=== PATIENT | male | born 1940 | race Caucasian/White ===

== ENCOUNTER 2017-05-27 19:04 | Inpatient (IN) | payer MEDICARE, BC, OTHER ==
[2017-05-27] MEDS ORDERED: Labetalol HCl 100 MG/20 ML VIAL ONE (19:38)
[2017-05-27 20:48] LABS: Troponin I 1.055 ng/mL (< 0.028)
[2017-05-27] MEDS ORDERED: Ondansetron ODT 4 MG TAB SL PRN (21:22)
[2017-05-27] MEDS ORDERED: Acetaminophen 325 MG TAB PO PRN (21:22)
[2017-05-27] MEDS ORDERED: Ondansetron HCl/PF 4 MG/2 ML Vial IVP PRN (21:22)
[2017-05-27 21:30] VITALS: BMI 29.8
[2017-05-27] MEDS ORDERED: Loperamide HCl 2 MG CAP PO PRN (21:53)
[2017-05-27] MEDS ORDERED: Bisacodyl 5 MG TAB PO PRN (21:53)
[2017-05-27] MEDS: Azithromycin 500 MG in Sodium Chloride 0.9% 250 ML 250 ML IVPB SCH (23:10)
[2017-05-28 06:17] LABS: #Lymphocytes 0.7 thou/uL (1.20-3.40); #Monocytes 0.2 thou/uL (0.11-0.59); #Neutrophils 5.3 thou/uL (1.40-6.50); %Basophils 0.6 % (0.0-1.0); %Eosinophils 0.3 % (0.0-10.0); %Lymphocytes 11.7 % (21.0-51.0); %Monocytes 3.6 % (0.0-10.0); %Neutrophils 83.8 % (42.0-75.0); Anion Gap 12 mmol/L (10-20); BUN (Urea Nitrogen) 23 mg/dL (8.4-25.7); Calc. Creatinine Clearance 85 mL/min (70-130); Calcium 8.2 mg/dL (7.8-10.44); Carbon Dioxide 27 mmol/L (23-31); Chloride 104 mmol/L (98-107); Estimated GFR-MDRD 80; Glucose 184 mg/dL (83-110); Hemoglobin 15.5 g/dL (14.0-18.0); Mean Corpuscular HGB CONC 32.2 g/dL (32.0-36.0); Mean Corpuscular Hemoglobin 31.2 pg (27.0-31.0); Mean Corpuscular Volume 96.9 fl (80.0-94.0); Mean Platelet Volume 7.9 fL (7.4-10.4); PLT Morphology Comment Appears Decreased; Platelet Count 109 thou/uL (130-400); Potassium 4.2 mmol/L (3.5-5.1); RBC Distribution Width 13.5 % (11.5-14.5); Red Blood Cell (RBC) Count 4.97 mill/uL (4.70-6.10); Sodium 139 mmol/L (136-145); White Blood Cell (WBC) Count 6.3 thou/uL (4.8-10.8)
--- NOTE | 2017-05-28 08:09 | HP ---
CHIEF COMPLAINT: Shortness of breath. HISTORY OF PRESENT ILLNESS: The patient is a 76-year-old male who presents with an 8-day history of shortness of breath. The patient states that shortness of breath is accompanied by wheezing. He als o complains of some coughing as well and coughing is accompanied by lower abdominal/groin pain. The patient is supposed to be on home O2; however, he states that he only uses it intermittently and not the way he is supposed to. He does use albuterol nebulizers as well and has had to increase the freq uency of his use to 3-4 times a day in the last several days. He complained of some diarrhea about 4 days ago, but this has since resolved. He states that his COPD had only two exacerbations in the la st several years. He has never been intubated for this. PAST MEDICAL HISTORY: Significant for COPD, as well as hypertension and hyperlipidemia, which he blanco s not take any medication for. PAST SURGICAL HISTORY: The patient has had prostate surgery. SOCIAL HISTORY: The patient denied any alcohol use. He has quit smoking about 5 years ago and previ ously had smoked cigarettes. ALLERGIES: The patient has allergies to PENICILLIN. REVIEW OF SYSTEMS: Please see HPI. Rest of 14-point review of systems is negative. The patient als o denied any fevers, chills, any constipation, nausea, or vomiting. LABORATORY AND X-RAY DATA: Transferring labs were reviewed, as the patient did transfer from [place] . His repeat troponin is 1.055. HOME MEDICATIONS: The patient is on amlodipine 10 mg once a day, as well as his albuterol nebulizers . PHYSICAL EXAMINATION: VITAL SIGNS: Temperature 97.9, pulse 100, respirations 16. The patient's saturation is 94% on 3 lit ers, blood pressure is 160/77. GENERAL: The patient is awake, alert, oriented x3, in no acute distress. HEENT: Pupils are round and reactive to light and accommodation. Extraocular muscles intact. TMs a re clear. . NECK: No JVD. No lymphadenopathy. HEART: Regular rate and rhythm. LUNGS: With decreased breath sounds throughout. ABDOMEN: Positive bowel sounds. Soft, nontender, nondistended. EXTREMITIES: No clubbing, cyanosis, or edema. NEUROLOGIC: Cranial nerves II-XII are grossly intact. PSYCHOLOGIC: The patient is appropriate and cooperative. ASSESSMENT AND PLAN: 1. Chronic obstructive pulmonary disease exacerbation. Continue with nebulizer treatments. Continu e with steroids, O2 via nasal cannula to keep O2 saturations greater than 88%. 2. Hypertension. Restart patient's amlodipine and p.r.n. medications as needed. 3. Elevated troponin. The patient has related this has happened in the past with his chronic obstru ctive pulmonary disease exacerbation. He did have a workup; however, it has been several years since his last stress test. We will go ahead and trend troponins and as needed consult Cardiology with fu rther workup if warranted.
[2017-05-28] MEDS: Albuterol Sulfate 2.5 mg/3 ml Neb NEB SCH ×4 (08:44→18:36)
[2017-05-28] MEDS: Mometasone/Formoterol 120 PUFF INHALER INH SCH ×2 (08:54→18:51)
[2017-05-28] MEDS: Lisinopril 10 MG TAB PO SCH (10:28)
[2017-05-28] MEDS: predniSONE 20 MG TAB PO SCH (10:28)
[2017-05-28] MEDS: Brimonidine Tartrate 0.2% Ophth Soln 5 ml Bottle EA EYE SCH ×2 (10:29→20:53)
[2017-05-28] MEDS ORDERED: Simvastatin 40 MG TAB PO SCH (11:15)
[2017-05-28] MEDS ORDERED: Aspirin 325 mg Enteric Coated Tablet PO SCH (11:15)
[2017-05-28 11:35] LABS: Critical Call Chem Troponin I RESULT DECREASING; Troponin I 1.111 ng/mL (< 0.028)
--- NOTE | 2017-05-28 15:19 | PDOC.PN ---
- Subjective Encounter Start Date: 05/28/17 Encounter Start Time: 15:15 CC: Dyspnea sub: Pt says he feels better, denies dyspnea. - Objective Resuscitation Status: Resuscitation Status DNR:Do Not Resuscitate Vital Signs & Weight: Vital Signs (12 hours) Temp Pulse Resp BP Pulse Ox 05/28/17 12:00 97.8 F 98 20 169/89 H 95 05/28/17 11:40 89 16 05/28/17 08:39 99 16 05/28/17 08:00 97.5 F L 81 20 163/80 H 93 L 05/28/17 04:45 97.7 F 87 18 169/79 H 95 Weight Weight 196 lb 1.6 oz Result Diagrams: 05/28/17 05:30 05/28/17 05:30 Phys Exam - Physical Examination Constitutional: NAD HEENT: moist MMs Neck: no JVD Respiratory: no wheezing diminished at bases, no rhonchi Cardiovascular: RRR, no significant murmur, no rub Gastrointestinal: soft, non-tender distended Musculoskeletal: no edema Neurological: non-focal Psychiatric: normal affect, A&O x 3 Skin: no rash Dx/Plan - Plan Pt is 76 yrs old male now admitted to hospital due to dyspnea 1. ACute COPD exacerbation: Breathing improved currently Will continue prednisone 40mg po daily Continue breathing treatments. 2. Abnormal cardiac enzymes: Repeat troponin stable Will start aspirin 81mg po daily and zocor 40mg daily will consult cardio to evalaute patient. 3. H/O HTN: monitor bp Continue home meds. 4. DVT & GI prophylaxis: Lovenox 40mg subq daily and PPI Case d/w pt & RN
--- NOTE | 2017-05-28 15:38 | CON ---
DATE OF CONSULTATION: 05/28/2017 REASON FOR CONSULTATION: Elevated troponin. HISTORY OF PRESENT ILLNESS: Mr. Camp is a very pleasant 76-year-old gentleman. He has a previous hi story of COPD, recently presented with abdominal pain in an outlying emergency room. He was told he had hernia. Enzymes were drawn and were elevated. He was subsequently transferred to [place]. Amarjit bojorquez has chronic shortness of breath. No episodes of chest pain or pressure noted. He does have advanc ed COPD. He states he last saw a entertainment agent in [place], [place] 7 years ago. PAST MEDICAL HISTORY: As above including hypertension, hyperlipidemia. PAST SURGICAL HISTORY: Prostate cancer. SOCIAL HISTORY: Quit all tobacco products 5 years ago. ALLERGIES: PENICILLIN. HOME MEDICATIONS: Include pantoprazole, Zestril, Symbicort, and albuterol. REVIEW OF SYSTEMS: Ten-point review of systems is reviewed and is as above, otherwise negative. PHYSICAL EXAMINATION: GENERAL: Patient is a pleasant male who is in no acute distress. He does appear older than his stat ed age. VITAL SIGNS: Blood pressure 169/89, pulse 98, temperature 97.8. NEUROLOGIC: The patient is alert and oriented times 3 with no focal neurologic deficits. HEENT: Sclerae without icterus. Mouth has moist mucous membranes with normal pallor. NECK: No JVD. Carotid upstroke brisk. No bruits bilaterally. LUNGS: Clear to auscultation with unlabored respirations. BACK: No scoliosis or kyphosis. CARDIAC: Regular rate and rhythm with normal S1 and S2. No S3 or S4 noted. No significant rubs, mu rmurs, thrills, or gallops noted throughout the precordium. PMI is not displaced. There is no milagros ternal heave. ABDOMEN: Soft, nontender, nondistended. No peritoneal signs present. No hepatosplenomegaly. No ab normal striae. EXTREMITIES: 2+ femoral and 2+ dorsalis pedis pulses. No cyanosis, clubbing, or edema. SKIN: No gross abnormalities. LABORATORY DATA: Peak troponin 1.111, potassium 4.2, creatinine 0.92, hemoglobin 15.5. EKG: Normal sinus rhythm, nonspecific ST-T wave changes. IMPRESSION: 1. Elevated troponin. 2. Unstable angina. 3. Chronic obstructive pulmonary disease. RECOMMENDATIONS: I am unsure whether Mr. Camp's symptoms of abdominal pain were anginal equivalent. He does have chronic shortness of breath. He has had mildly elevated troponins in the past in the 0 .1-0.2 range, but not 1.7. At this point, I discussed coronary angiography, possible PCI with Mr. Jenaro green. I discussed the procedure in full detail with the patient. The risks of the procedure were also discussed. The risks of the procedure include but are not limited to the following: , stroke, IA, need for emergency surgery, loss of limb, bleeding, and infection, as well as a reaction to the dye causing kidney failure and needing long-term dialysis. I also discussed the risks of PCI to incl ude all of the above including coronary dissection and perforation in addition to acute stent thrombo sis and restenosis. All questions about the procedure were answered. Given the above, the patient a greed to proceed with coronary angiography and possible PCI. All questions about the procedure were answered. I also discussed drug-coated versus nondrug coated stent placement. There are no contraindications to proceed if needed. Further recommendations were pending the above. We would continue aspirin. We will add Lovenox 1 mg per kilo subcutaneously q.12 h. We will hold Plavix and give if needed during the procedure. There is some concern for severe 3- vessel disease given his previous history.
[2017-05-28] MEDS: Latanoprost 0.005% Ophth Soln 2.5 ml Bottle EA EYE SCH (20:53)
[2017-05-28] MEDS: Enoxaparin Sodium 100 MG/ML SYRINGE SC SCH (20:53)
[2017-05-28] MEDS: Azithromycin 500 MG in Sodium Chloride 0.9% 250 ML 250 ML IVPB SCH (20:53)
[2017-05-29] MEDS: Albuterol Sulfate 2.5 mg/3 ml Neb NEB SCH ×4 (07:05→19:23)
[2017-05-29] MEDS: Lisinopril 10 MG TAB PO SCH ×2 (08:38→17:47)
[2017-05-29] MEDS: predniSONE 20 MG TAB PO SCH (08:43)
[2017-05-29] MEDS: Aspirin 325 mg Enteric Coated Tablet PO SCH (08:43)
[2017-05-29] MEDS: Enoxaparin Sodium 100 MG/ML SYRINGE SC SCH ×2 (08:44→21:19)
[2017-05-29] MEDS: Mometasone/Formoterol 120 PUFF INHALER INH SCH ×2 (08:47→19:16)
[2017-05-29] MEDS: Brimonidine Tartrate 0.2% Ophth Soln 5 ml Bottle EA EYE SCH ×2 (08:49→21:21)
[2017-05-29] MEDS ORDERED: Communication Order-Pharmacy FS SCH (09:30)
[2017-05-29] MEDS ORDERED: Nitroglycerin 0.4 MG TAB (25 Tab Bottle) SL PRN (11:36)
[2017-05-29] MEDS ORDERED: Sodium Chloride 0.9% 10 ML ONE (13:18)
--- NOTE | 2017-05-29 14:21 | PDOC.PN ---
- Subjective Encounter Start Date: 05/29/17 Encounter Start Time: 14:19 CC: Dyspnea sub: Pt denies chest pain, but still c/o dyspnea - Objective Resuscitation Status: Resuscitation Status DNR:Do Not Resuscitate Vital Signs & Weight: Vital Signs (12 hours) Temp Pulse Resp BP Pulse Ox 05/29/17 11:18 98.0 F 91 22 H 131/57 L 95 05/29/17 11:15 96 05/29/17 11:14 88 20 05/29/17 07:05 97.9 F 94 22 H 162/86 H 97 05/29/17 04:00 96.1 F L 80 19 146/86 H 93 L Weight Weight 198 lb 8 oz I&O: 05/28/17 05/29/17 05/30/17 06:59 06:59 06:59 Intake Total 2049 Balance 2049 Result Diagrams: 05/28/17 05:30 05/28/17 05:30 Dx/Plan - Plan Physical Examination Constitutional: NAD HEENT: moist MMs Neck: no JVD Respiratory: positive wheezing, diminished at bases, occasional rhonchi, no accessory muscle usage seen Cardiovascular: RRR, no significant murmur, no rub Gastrointestinal: soft, non-tender distended Musculoskeletal: no edema Neurological: non-focal Psychiatric: normal affect, A&O x 3 Skin: no rash Dx/Plan - Plan Pt is 76 yrs old male now admitted to hospital due to dyspnea 1. ACute COPD exacerbation: Breathing no change since yesterday will dc po prednisone and will start iv solumedrol 40mg q8hrs Continue breathing treatments. 2. Abnormal cardiac enzymes: Repeat troponin stable continue aspirin 81mg po daily and zocor 40mg daily Cardio on board. Cath on tuesday. 3. H/O HTN: monitor bp Continue home meds. 4. DVT & GI prophylaxis: Lovenox 40mg subq daily and PPI Case d/w pt & RN & pt family at bedside.
[2017-05-29] MEDS: Simvastatin 40 MG TAB PO SCH (21:20)
[2017-05-29] MEDS: Latanoprost 0.005% Ophth Soln 2.5 ml Bottle EA EYE SCH (21:20)
[2017-05-29] MEDS: Azithromycin 500 MG in Sodium Chloride 0.9% 250 ML 250 ML IVPB SCH (21:21)
[2017-05-29] MEDS ORDERED: Sodium Chloride 0.9% 1,000 ML IV SCH (22:00)
[2017-05-30] MEDS ORDERED: Sodium Chloride 0.9% 1,000 ML IV SCH ×2 (06:00→11:45)
[2017-05-30] MEDS: Mometasone/Formoterol 120 PUFF INHALER INH SCH ×2 (08:00→20:47)
[2017-05-30] MEDS: Albuterol Sulfate 2.5 mg/3 ml Neb NEB SCH ×4 (08:01→20:44)
[2017-05-30] MEDS: Brimonidine Tartrate 0.2% Ophth Soln 5 ml Bottle EA EYE SCH ×2 (08:27→21:19)
[2017-05-30] MEDS ORDERED: Lisinopril 10 MG TAB PO SCH (09:00)
[2017-05-30] MEDS ORDERED: Fentanyl 100 MCG/2 ML VIAL ONE (10:54)
[2017-05-30] MEDS ORDERED: Midazolam HCl 2 mg/2 ml Vial ONE (10:54)
[2017-05-30] MEDS ORDERED: Heparin 10,000 UNITS/1 ML VIAL ONE (11:10)
[2017-05-30] MEDS ORDERED: Clopidogrel Bisulfate 300 MG TAB ONE (11:10)
--- NOTE | 2017-05-30 11:32 | PDOC.PN ---
- Subjective Encounter Start Date: 05/30/17 Encounter Start Time: 11:37 Subjective: No complaints today. -: No acute events overnight. -: Scheduled for CATH today. - Objective Resuscitation Status: Resuscitation Status FULL:Full Resuscitation MAR Reviewed: Yes Vital Signs & Weight: Vital Signs (12 hours) Temp Pulse Resp BP Pulse Ox 05/30/17 08:01 97.6 F 105 H 18 97 05/30/17 04:00 97.4 F L 94 18 134/86 96 Weight Weight 197 lb 6 oz I&O: 05/29/17 05/30/17 05/31/17 06:59 06:59 06:59 Intake Total 2049 1680 Output Total 550 Balance 2049 1130 Result Diagrams: 05/28/17 05:30 05/28/17 05:30 Phys Exam - Physical Examination Constitutional: NAD HEENT: PERRLA, moist MMs, sclera anicteric Neck: supple, full ROM Respiratory: no rales, no rhonchi, wheezing present (minimal, with decreased air entry lung bases) Cardiovascular: RRR, no significant murmur, no rub Gastrointestinal: soft, non-tender, no distention, positive bowel sounds Musculoskeletal: no edema, pulses present Neurological: non-focal, moves all 4 limbs Psychiatric: normal affect, A&O x 3 Skin: no rash, normal turgor Dx/Plan (1) Acute and chronic respiratory failure Code(s): J96.20 - ACUTE AND CHR RESP FAILURE, UNSP W HYPOXIA OR HYPERCAPNIA Status: Acute Qualifiers: Respiratory failure complication: hypoxia Qualified Code(s): J96.21 - Acute and chronic respiratory failure with hypoxia Comment: Improving. Uses 2-3L O2 at home. Almost back to baseline requirements. Continue O2, steroids, abx (2) Elevated troponin Code(s): R79.89 - OTHER SPECIFIED ABNORMAL FINDINGS OF BLOOD CHEMISTRY Status : Acute Comment: Chest pain free. CATH today. f/u cards recs. (3) COPD exacerbation Code(s): J44.1 - CHRONIC OBSTRUCTIVE PULMONARY DISEASE W (ACUTE) EXACERBATION Status: Acute Comment: Improving. Continue mx per problem #1 (4) GERD (gastroesophageal reflux disease) Code(s): K21.9 - GASTRO-ESOPHAGEAL REFLUX DISEASE WITHOUT ESOPHAGITIS Status: Acute Qualifiers: Esophagitis presence: esophagitis presence not specified Qualified Code(s) : K21.9 - Gastro-esophageal reflux disease without esophagitis Comment: On Pantoprazole. Asymptomatic. Will continue. (5) History of prostate cancer Code(s): Z85.46 - PERSONAL HISTORY OF MALIGNANT NEOPLASM OF PROSTATE Status: Chronic Comment: Unchanged. (6) HTN (hypertension) Code(s): I10 - ESSENTIAL (PRIMARY) HYPERTENSION Status: Acute Qualifiers: Hypertension type: essential hypertension Qualified Code(s): I10 - Essential (primary) hypertension Comment: Controlled and at goal. Continue home medications. - Plan cont current plan of care, plan discussed w/ family, DVT proph w/lovenox * .
[2017-05-30] MEDS ORDERED: Iopamidol 370 76% 50 ML VIAL FS ONE (11:35)
[2017-05-30] MEDS ORDERED: Iopamidol 370 76% 100 ML VIAL ONE (11:36)
[2017-05-30] MEDS ORDERED: cloNIDine 0.1 MG TAB ONE (12:38)
--- NOTE | 2017-05-30 13:26 | PQF ---
CLINICAL DOCUMENTATION IMPROVEMENT CLARIFICATION FORM: ICD-10 Updated PLEASE DO AN ADDENDUM TO THE PROGRESS NOTE WITH ANY DOCUMENTATION UPDATES OR ADDITIONS AND CARRY THROUGH TO DC SUMMARY. THANK YOU. DATE: 05/30 ATTN: DR. Ruiz BURKETT Please exercise your independent, professional judgment in responding to the clarification form. Clinical indicators are provided on the bottom of this form for your review. Please check appropriate box(s): [ x ] NSTEMI TYPE 1 [ ] NSTEMI TYPE 2 [ ] Demand Ischemia [ ] Unstable Angina [ ] Other diagnosis [ ] Unable to determine For continuity of documentation, please document condition throughout progress notes and discharge summary. Thank You. CLINICAL INDICATORS - SIGNS / SYMPTOMS/ LABS are present in the medical record: TROPONIN: 1.055 (2010); 1.260 (05/27, 2310); 1.111 (05/28, 1052) ER PHYSICIAN DOCUMENTATION 05/27: TRANSFER FROM [facility] FOR ELEVATED TROPONINS PHYSICIAN H&P DOCUMENTATION 05/27: ASSESSMENT & PLAN: 3. ELEVATED TROPONIN CARDIOLOGY CONSULT DOCUMENTATION 05/28: IMPRESSION: 1. ELEVATED TROPONIN; 2. UNSTABLE ANGINA. RECOMMENDATIONS: I'M UNSURE WHETHER MR. KLINE'S SYMPTOMS OF ABDOMINAL PAIN WERE ANGINAL EQUIVALENT. HE HAS HAD MILDLY ELEVATED TROPONINS IN THE PAST IN THE 0.1 - 0.2 RANGE, BUT NOT 1.7 ATTENDING PHYSICIAN PN / &4: DX/PLAN: 2. ABNORMAL CARDIAC ENZYMES ATTENDING PHYSICIAN PN 05/30: DX/PLAN: 2. ELEVATED TROPONIN CARDIOLOGY CONSULT ORDER 05/28: REASON FOR EXAM: NSTEMI RISK FACTORS: ELEVATED TROPONINS HTN COPD EXACERBATION TREATMENT: CARDIOLOGY CONSULT L HEART CATH W/ROSEANN W/PTCA SERIAL CARDIAC ENZYMES THANK YOU! Lola (This form is maintained as a part of the permanent medical record) 2014 [employer]. All Rights Reserved Lola Mueller RN, BSN [email or web address] Office: [phone] [facility] HOSPITALEusebio
[2017-05-30] MEDS ORDERED: hydrALAZINE 20 MG/ML VIAL ONE (14:53)
[2017-05-30] MEDS ORDERED: hydrALAZINE 20 MG/ML VIAL SLOW IVP SCH (16:30)
[2017-05-30] MEDS: Aspirin 325 mg Enteric Coated Tablet PO SCH (17:01)
[2017-05-30] MEDS ORDERED: Sodium Chloride 0.65% Nasal 44 ML BOT EA NARE PRN (17:45)
[2017-05-30] MEDS ORDERED: Lisinopril 5 MG TAB PO SCH (18:00)
[2017-05-30] MEDS: Azithromycin 500 MG in Sodium Chloride 0.9% 250 ML 250 ML IVPB SCH (21:18)
[2017-05-30] MEDS: Simvastatin 40 MG TAB PO SCH (21:18)
[2017-05-30] MEDS: Lisinopril 10 MG TAB PO SCH (21:19)
[2017-05-30] MEDS: Latanoprost 0.005% Ophth Soln 2.5 ml Bottle EA EYE SCH (21:19)
[2017-05-31 05:55] LABS: #Lymphocytes 0.7 thou/uL (1.20-3.40); #Monocytes 0.5 thou/uL (0.11-0.59); %Basophils 0.2 % (0.0-1.0); %Eosinophils 0.2 % (0.0-10.0); %Lymphocytes 5.3 % (21.0-51.0); %Monocytes 3.9 % (0.0-10.0); %Neutrophils 90.5 % (42.0-75.0); Hemoglobin 14.4 g/dL (14.0-18.0); Mean Corpuscular HGB CONC 31.4 g/dL (32.0-36.0); Mean Corpuscular Hemoglobin 30.7 pg (27.0-31.0); Mean Platelet Volume 8.4 fL (7.4-10.4); Platelet Count 129 thou/uL (130-400); RBC Distribution Width 13.5 % (11.5-14.5); Red Blood Cell (RBC) Count 4.68 mill/uL (4.70-6.10); White Blood Cell (WBC) Count 13.3 thou/uL (4.8-10.8)
[2017-05-31 06:18] LABS: ALT (SGPT) 43 U/L (8-55); AST (SGOT) 33 U/L (5-34); Albumin 3.3 g/dL (3.4-4.8); Alkaline Phosphatase 75 U/L (40-150); Anion Gap 10 mmol/L (10-20); BUN (Urea Nitrogen) 20 mg/dL (8.4-25.7); Bilirubin, Total 0.6 mg/dL (0.2-1.2); Calc. Creatinine Clearance 102 mL/min (70-130); Calcium 8.1 mg/dL (7.8-10.44); Carbon Dioxide 28 mmol/L (23-31); Chloride 106 mmol/L (98-107); Estimated GFR-MDRD Greater than 90; Globulin 2.7 g/dL (2.4-3.5); Glucose 181 mg/dL (83-110); Potassium 4.2 mmol/L (3.5-5.1); Sodium 140 mmol/L (136-145)
--- NOTE | 2017-05-31 06:25 | EKG ---
Test Reason : POST CATH STENT-RCA Blood Pressure : / mmHG Vent. Rate : 106 BPM Atrial Rate : 106 BPM P-R Int : 164 ms QRS Dur : 106 ms QT Int : 364 ms P-R-T Axes : 074 083 061 degrees QTc Int : 483 ms Sinus tachycardia Otherwise normal ECG Artifact in baseline of V6 lead. Compared to ekg of 13-May-2017 T wave inversion no longer evident in V5 and V6 leads. Confirmed by VINCENZO MCCALL ([id number]) on 05/31/2017 6:24:51 AM Referred By: CECELIA Confirmed By:VINCENZO MCCALL
[2017-05-31] MEDS: Mometasone/Formoterol 120 PUFF INHALER INH SCH (08:16)
[2017-05-31] MEDS: Albuterol Sulfate 2.5 mg/3 ml Neb NEB SCH ×3 (08:17→13:10)
[2017-05-31] MEDS ORDERED: Clopidogrel Bisulfate 75 MG TAB PO SCH (09:00)
[2017-05-31] MEDS: Brimonidine Tartrate 0.2% Ophth Soln 5 ml Bottle EA EYE SCH (09:36)
--- NOTE | 2017-05-31 11:23 | PRG ---
DATE OF SERVICE: 05/31/2017 SUBJECTIVE: No chest pain or pressure noted. No dizziness, lightheadedness, syncope, or presyncope present. OBJECTIVE: VITAL SIGNS: Blood pressure 136/86, pulse 100, temperature 98.2. LUNGS: Rhonchi and rales bilaterally. HEART: Regular rate and rhythm. ABDOMEN: Soft, nontender, nondistended. EXTREMITIES: No edema. Telemetry monitoring show 9 beats of nonsustained VT. IMPRESSION: 1. Non-Q wave myocardial infarction. 2. Coronary artery disease. 3. Status post stent placement. 4. Chronic obstructive pulmonary disease with asthma. RECOMMENDATIONS: The patient does have 9 beats of nonsustained VT. This may have been during the Ve ntolin treatments. We would recommend Echo Doppler. If his LVEF is normal, we will continue current treatment. May consider an EP consult if there is any compromise of his LVEF. I may consider event recorder to assess for any further dysrrhythmias.
[2017-05-31 16:17] VITALS: BP 163/92; TEMP 97.9
[2017-05-31] MEDS ORDERED: Lisinopril 10 MG TAB PO SCH (18:00)
--- NOTE | 2017-05-31 19:12 | DIS ---
DATE OF ADMISSION: 05/27/2017 DATE OF DISCHARGE: 05/31/2017 PRIMARY DISCHARGE DIAGNOSES: Coronary artery disease. SECONDARY DIAGNOSES: Acute on chronic respiratory failure, elevated non-ST elevated myocardial infar ction, chronic obstructive pulmonary disease exacerbation, gastroesophageal reflux disease, history o f prostate cancer, hypertension. CONSULTATION: Cardiology. CONDITION AT DISCHARGE: Stable and improved. PROCEDURE: Cardiac catheterization. DIET: Heart healthy. CARE GOALS: To follow up with his primary care physician within 1 week of discharge. Also to take h is medications as prescribed and told to return to the emergency room if he develops chest pain, shor tness of breath, loss of consciousness, or dizziness. ACTIVITY: As tolerated. HISTORY OF PRESENT ILLNESS: Mr. Adi Camp is a 76-year-old male who [facility] an 8-day history of shortness of breath which was accompanied by wheezing. He also had some c ough with some associated lower abdominal/groin pain. The patient is supposed to be on home oxygen, but however, he only uses it intermittently and states not in the way he is supposed to. He does use albuterol nebulizer as well and had to increase the frequency of his use to 3-4 times a day in the ast several days before presentation. He reports he has only had two exacerbations or COPD in the [place] [facility] several years and had never been intubated. HOSPITAL COURSE: He was admitted for acute on chronic respiratory failure, started on parenteral adriel roids, nebulizers and continued on oxygen supplementation. He also received azithromycin for possibl e associated pneumonia. He responded to therapy. They were reviewed by Cardiology due to NSTEMI as he had increase in troponin levels. He had a cardiac catheterization and had successful PCI with a d rug-eluting stent. He was started on aspirin and Plavix and he is to follow up with Cardiology disch talia. DISCHARGE MEDICATIONS: Aspirin 81 mg daily, Clopidogrel 75 mg daily, ipratropium/albuterol sulfate 3 mL nebulizers every 6 hours as needed for shortness of breath/wheezing, nitroglycerin 0.4 mg subling ually every 5 minutes as needed for chest pain, simvastatin 40 mg at bedtime, prednisone 40 mg every morning with breakfast, budesonide formoterol 2 puffs inhaled daily, pantoprazole 40 mg orally daily. PHYSICAL EXAMINATION: VITAL SIGNS: Stable on day of discharge. CONSTITUTIONAL: Not in acute distress, lying comfortably in bed. HEENT: PERRLA. Moist mucous membranes. Sclerae are anicteric. NECK: Supple, full range of movement. RESPIRATORY: No rales, rhonchi, or wheezing. CARDIOVASCULAR: Regular rate and rhythm. No significant murmurs or rubs. GASTROINTESTINAL: Soft, nontender, nondistended, positive bowel sound. MUSCULOSKELETAL: No edema. Pulses present. NEUROLOGICAL: Nonfocal. Moves all limbs spontaneously. PSYCHIATRIC: Normal affect. Alert and oriented to time, place, and person. SKIN: No rash, normal turgor. LABORATORY DATA: Sodium 140, potassium 4.2, chloride 106, carbon dioxide 28, anion gap 10, BUN 20, c reatinine 0.77, glucose 181. WBC 13.3, hemoglobin 14.4, platelet count 129. IMAGING: None. Time of discharge: 65 minutes including chart review and documentation.
--- NOTE | 2017-05-31 21:15 | EKG ---
Test Reason : Blood Pressure : / mmHG Vent. Rate : 085 BPM Atrial Rate : 085 BPM P-R Int : 160 ms QRS Dur : 100 ms QT Int : 380 ms P-R-T Axes : 065 077 075 degrees QTc Int : 452 ms Sinus rhythm with marked sinus arrhythmia Premature atrial complexes Septal infarct , age undetermined /Poor R wave progression. Abnormal ECG When compared with ECG of 30-MAY-2017 12:21, No significant change was found Confirmed by VINCENZO MCCALL ([id number]) on 05/31/2017 9:15:23 PM Referred By: CECELIA Confirmed By:VINCENZO MCCALL
== END 2017-05-31 17:15 | disposition home or self-care (01) | DRG 246 ==
LOC: ERS 19:04 → 2NO 19:55
PROVIDERS: ADMIT Hospitalist; ATTEND Hospitalist
PROC: 4A023N7 Measurement of Cardiac Sampling and Pressure, Left Heart, Percutaneous Approach (ICD-10-PCS; principal; 2017-05-30)
PROC: 027034Z Dilation of Coronary Artery, One Artery with Drug-eluting Intraluminal Device, Percutaneous Approach (ICD-10-PCS; 2017-05-30)
PROC: B2111ZZ Fluoroscopy of Multiple Coronary Arteries using Low Osmolar Contrast (ICD-10-PCS; 2017-05-30)
PROC: B2151ZZ Fluoroscopy of Left Heart using Low Osmolar Contrast (ICD-10-PCS; 2017-05-30)
DX: I25.110 Atherosclerotic heart disease of native coronary artery with unstable angina pectoris (principal); I21.4 Non-ST elevation (NSTEMI) myocardial infarction; J96.21 Acute and chronic respiratory failure with hypoxia; J44.1 Chronic obstructive pulmonary disease with (acute) exacerbation; Z99.81 Dependence on supplemental oxygen; K21.9 Gastro-esophageal reflux disease without esophagitis; Z85.46 Personal history of malignant neoplasm of prostate; I10 Essential (primary) hypertension; Z66 Do not resuscitate; Z87.891 Personal history of nicotine dependence
CPT/HCPCS: 36415; 76942; 80048; 80053; 84484; 85025; 85347; 92928; 93005; 93010; 93306; 93458; 93798; 94640; 96374; 99152; 99153; A4216; C1725; C1769; C1874; C1887; C9600; J0360; J0456; J1644; J1650; J2250; J2920; J3010; J7050; J7506; J7611; J7620

== ENCOUNTER 2020-01-30 16:24 | Inpatient (IN) | payer MEDICARE, BC, OTHER ==
[2020-01-30] MEDS ORDERED: Acetaminophen 325 MG TAB PO PRN (17:17)
[2020-01-30] MEDS ORDERED: Dextrose 5% in Water 1,000 ML IV PRN (17:26)
[2020-01-30] MEDS ORDERED: Dextrose 50% Abboject 50 ML SYRINGE SLOW IVP PRN (17:26)
[2020-01-30] MEDS ORDERED: Insulin Regular 300 UNITS/3 ML VIAL SC PRN (17:26)
[2020-01-30 17:30] LABS: Bilirubin Negative (Negative); Blood, Urine Negative (Negative); Clarity Clear (Clear); Glucose, Urine (Dipstick) Normal (Negative); Ketone, Urine Negative (Negative); Leukocyte Negative Leu/uL (Negative); Nitrite Negative (Negative); Protein, Urine (Dipstick) Negative (Neg-Trace); Specific Gravity, Urine 1.027 (1.002-1.036); Urobilinogen Normal mg/dL (Less than 2); pH, Urine 6.5 (5.0-9.0)
[2020-01-30] MEDS ORDERED: Potassium Chloride 20 MEQ TAB PO SCH (17:30)
[2020-01-30] MEDS ORDERED: Sodium Chloride 0.9% 1,000 ML IV SCH (17:45)
[2020-01-30] MEDS ORDERED: cefTRIAXone\\ROCEPHIN 1 GM in Sodium Chloride 0.9% 100 ML IVPB SCH (18:00)
[2020-01-30] MEDS ORDERED: Vancomycin 1 GM/200 ML BAG ONE (18:18)
[2020-01-30] MEDS ORDERED: Morphine 4 MG/ML VIAL ONE (20:15)
[2020-01-30] MEDS: Atorvastatin Calcium 20 MG TAB PO SCH (22:44)
[2020-01-30] MEDS: metroNIDAZOLE 500 MG in Premix Bag 1 BAG IVPB SCH (22:46)
--- NOTE | 2020-01-30 23:50 | HP ---
CHIEF COMPLAINT: Abdominal pain and diarrhea. HISTORY OF PRESENT ILLNESS: The patient is an 79-year-old male with past medical history of prostate cancer, COPD, diabetes, hyperlipidemia, and CHF who presented to the ER with complaints of abdominal pain and diarrhea. The patient's symptoms started 3 weeks ago where he was diagnosed with sigmoid diverticulitis at an outside facility and was given ciprofloxacin and Flagyl. The patient took the antibiotic as prescribed and he reported improvement in his symptoms. However, last week, his symptoms returned and progressed over the last few days. The patient presented to the outside ER again where another CT scan of the abdomen revealed pancolitis with ascending and descending diverticulitis. His laboratory studies revealed significant leukocytosis and his presentation qualified for sepsis. The patient was transferred to our hospital for further management. At this time, the patient is complaining of lower abdominal pain and diarrhea. He stated that he was not able to urinate since this morning. He was given fluids earlier today. A Steele catheter was placed by ER staff. The patient denies fever or chills. REVIEW OF SYSTEMS: Negative except as noted above. PAST MEDICAL HISTORY: As noted in HPI. SURGICAL HISTORY: This includes prostate surgery and cataract surgery. SOCIAL HISTORY: The patient is a former smoker. Denies alcohol use or illicit drug use. ALLERGIES: THE PATIENT IS ALLERGIC TO PENICILLINS. FAMILY HISTORY: Noncontributory to this case. PHYSICAL EXAMINATION: GENERAL: The patient is alert and oriented. HEENT: Head, normocephalic, atraumatic. Extraocular muscles intact. NECK: Supple. CHEST: Auscultation reveals mild wheezes bilaterally. CARDIOVASCULAR: Reveals normal S1 and S2 with regular rate and rhythm. ABDOMEN: Soft and tender in the lower quadrants. NEUROLOGIC: Showed normal cranial nerves 2 through 12 and no focal motor deficits. PERTINENT DATA: CT scan of the abdomen and pelvis with contrast showed diffuse colitis with segmental diverticulitis in the ascending and descending colon. LABORATORY STUDIES: Revealed WBC count of 22. Chemistry showed a potassium level of 3, total bilirubin of 1.5, and BNP of 156. ASSESSMENT: 1. Sepsis. 2. Pancolitis. 3. Diverticulitis. 4. Chronic obstructive pulmonary disease. 5. Diabetes mellitus. 6. Hyperlipidemia. 7. Congestive heart failure. 8. History of prostate cancer. 9. Urine retention. PLAN: The patient will be admitted to the hospital. We will start IV ceftriaxone and IV Flagyl for sepsis due to diverticulitis. Due to the patient's CHF, we will not administer fluid boluses. I will gently hydrate the patient overnight with 1 L of normal saline at a low rate. Hold diuretics at this time. Follow the results of the blood culture. Replace potassium and check BMP in the morning. We will keep the Steele catheter at this time and attempt a voiding trial later into hospitalization. Lovenox for DVT prophylaxis. PT and OT evaluation. Job ID: [id number]
[2020-01-31] MEDS: metroNIDAZOLE 500 MG in Premix Bag 1 BAG IVPB SCH ×3 (06:17→20:54)
[2020-01-31 06:31] LABS: Anion Gap 16 mmol/L (10-20); BUN (Urea Nitrogen) 15 mg/dL (8.4-25.7); Calc. Creatinine Clearance 86 mL/min (70-130); Calcium 7.6 mg/dL (7.8-10.44); Carbon Dioxide 20 mmol/L (23-31); Chloride 108 mmol/L (98-107); Estimated GFR-MDRD 88; Glucose 86 mg/dL (83-110); Potassium 3.6 mmol/L (3.5-5.1); Sodium 140 mmol/L (136-145)
[2020-01-31 06:31] LABS: Band 27 % (5-11); Hemoglobin 13.3 g/dL (14.0-18.0); Hypochromia SLIGHT = 6-15 cells (100X) (0-5/hpf); Lymphocytes 8 % (21-51); MDiff Complete? YES; Mean Corpuscular HGB CONC 32.4 g/dL (32.0-36.0); Mean Corpuscular Hemoglobin 32.5 pg (27.0-31.0); Mean Platelet Volume 8.1 fL (7.4-10.4); Monocytes 1 % (0-10); Neutrophil 64 % (42-75); Platelet Count 231 thou/uL (130-400); Platelet Morphology Comment Appears Adequate; RBC Distribution Width 13.3 % (11.5-14.5); Red Blood Cell (RBC) Count 4.09 mill/uL (4.70-6.10); White Blood Cell (WBC) Count 19.1 thou/uL (4.8-10.8)
[2020-01-31 08:07] LABS: Eosinophils 1 % (0-10); RBC Morphology Normal; Toxic Granulation SLIGHT
[2020-01-31] MEDS ORDERED: Sodium Chloride 0.9% 1,000 ML IV SCH (09:11)
[2020-01-31] MEDS ORDERED: Sodium Chloride 0.9% 500 ML IV SCH (09:15)
--- NOTE | 2020-01-31 09:17 | PDOC.HOSPP ---
- Subjective Encounter Date: 01/31/20 Encounter Time: 09:15 Subjective: Patient seen and examined. Patient says he feels terrible. Reports 3 liquid stools. Reports abdominal pain the same, "hurts everywhere". Denies any nausea or vomiting. Has not been drinking much. Reports chills. Denies chest pain, heart palpitations, SOB, lower extremity swelling. - Objective Vital Signs & Weight: Vital Signs (12 hours) Temp Pulse Resp BP Pulse Ox 01/31/20 07:05 98.0 F 104 H 15 130/63 95 01/31/20 05:00 99.2 F 107 H 20 151/65 H 94 L 01/30/20 23:55 101.8 F H 94 L 01/30/20 21:30 100.8 F H 88 20 138/67 Weight Weight 192 lb I&O: 01/30/20 01/31/20 02/01/20 06:59 06:59 06:59 Intake Total 60 Output Total 1225 Balance -1165 Result Diagrams: 01/31/20 Unknown 01/31/20 04:00 Additional Labs: Accuchecks 01/31/20 05:59 POC Glucose 79 Hospitalist ROS - Review of Systems Constitutional: reports: fever, chills Respiratory: denies: cough, shortness of breath Cardiovascular: denies: chest pain, palpitations, edema, light headedness Gastrointestinal: reports: abdominal pain, diarrhea. denies: nausea, vomiting Genitourinary: denies: dysuria Neurological: denies: change in speech All other systems reviewed; all pertinent +/- noted in HPI/Subj - Medication Medications: Active Medications Generic Name Dose Route Start Last Admin Trade Name Freq PRN Reason Stop Dose Admin Atorvastatin Calcium 20 mg 01/30/20 21:00 01/30/20 22:44 Atorvastatin Calcium 20 Mg Tab PO 20 mg HS BILL Administration - Exam General Appearance: NAD, awake alert, ill appearing Eye: anicteric sclera ENT: normocephalic atraumatic Neck: supple, symmetric Heart: no murmur, no gallops, no rubs Heart - other findings: tachycardic, regular Respiratory: CTAB, no wheezes, no rales, no ronchi, normal chest expansion, no tachypnea Respiratory - other findings: diminished BLL Gastrointestinal: soft, normal bowel sounds, no rigidity, tender to palpation. negative: no guarding Gastrointestinal - other findings: throughout Extremities: no cyanosis, 1+ LE edema Neurological: no focal deficits Hosp A/P (1) Sepsis Code(s): A41.9 - SEPSIS, UNSPECIFIED ORGANISM Status: Acute (2) Pancolitis Code(s): K51.00 - ULCERATIVE (CHRONIC) PANCOLITIS WITHOUT COMPLICATIONS Status: Acute (3) Diarrhea Code(s): R19.7 - DIARRHEA, UNSPECIFIED Status: Acute (4) Hypokalemia Code(s): E87.6 - HYPOKALEMIA Status: Acute (5) CHF (congestive heart failure) Code(s): I50.9 - HEART FAILURE, UNSPECIFIED Status: Chronic (6) COPD (chronic obstructive pulmonary disease) Status: Chronic (7) DMII (diabetes mellitus, type 2) Status: Chronic - Plan #Sepsis Likely d/t problem #2. #Pancolitis Fever last night, tachycardic LA 1.6, up to 2.0, WBCs 19 Continue rocephin and flagyl Get LA, Procalcitonin 500ml bolus increase maintanence IVF to 75/mls Hx CHF, no signs FVO, did not recieve IVF in ED. #Diarrhea 3 loose stools this morning. Was on outpatient oral abx prior to admission. Stool CX for C difficile. #Hypokalemia improved to 3.6. Had 3 loose stools this morning. Will give 40mEq IVPB Check mag level #CHF 05/2017 Echo:EF 50-55%, diastolic dysfunction Gentle IVF hydration #DMII ISS AC/HS checks #COPD chronic, appears stable. No signs of respiratory distress on examination Continue to monitor
[2020-01-31] MEDS ORDERED: Potassium Chloride 40 MEQ in Sodium Chloride 0.9% 250 ML 250 ML IVPB SCH (09:30)
[2020-01-31] MEDS: Enoxaparin Sodium 40 MG/0.4 ML SYRINGE SC SCH (09:32)
[2020-01-31] MEDS: Losartan 25 MG TAB PO SCH (09:33)
[2020-01-31] MEDS ORDERED: Piperacillin/Tazobactam 3.375 GM in Sodium Chloride 0.9% 100 ML IVPB SCH (10:00)
[2020-01-31] MEDS ORDERED: Magnesium 2 GM/50 ML 2 GM in Premix Bag 1 BAG IVPB SCH (11:15)
[2020-01-31] MEDS: Morphine 2 MG/ML VIAL SLOW IVP PRN (11:34)
--- NOTE | 2020-01-31 11:39 | RAD ---
PORTABLE CHEST 1 VIEW: Date: 01/31/2020 Time: 1055 hours HISTORY: Hypoxia. COMPARISON: Previous day. FINDINGS: The heart size is normal. No focal areas of consolidation, pneumothoraces, or pleural effusions are s een. IMPRESSION: No acute process. POS: AH
[2020-01-31 12:44] LABS: SARS-CoV-2 MS2 Positive; SARS-CoV-2 N Gene Negative; SARS-CoV-2 S Gene Negative; SARS-CoV-2 by NAA Not Detected (NotDetected); SARS-CoV-2 orf1ab Negative
[2020-01-31] MEDS: Sodium Chloride 0.9% 1,000 ML IV SCH (12:59)
[2020-01-31 13:43] VITALS: BMI 30.9
[2020-01-31] MEDS: Vancomycin HCl 25 MG/ML Oral PO SCH (18:18)
[2020-01-31] MEDS: Atorvastatin Calcium 20 MG TAB PO SCH (20:54)
[2020-02-01] MEDS: cefTRIAXone\\ROCEPHIN 1 GM in Sodium Chloride 0.9% 100 ML IVPB SCH ×2 (00:23→23:05)
[2020-02-01] MEDS: Vancomycin HCl 25 MG/ML Oral PO SCH ×5 (00:23→23:05)
[2020-02-01 05:14] LABS: Anion Gap 10 mmol/L (10-20); BUN (Urea Nitrogen) 14 mg/dL (8.4-25.7); Calc. Creatinine Clearance 92 mL/min (70-130); Calcium 7.2 mg/dL (7.8-10.44); Carbon Dioxide 25 mmol/L (23-31); Chloride 109 mmol/L (98-107); Estimated GFR-MDRD Greater than 90; Glucose 115 mg/dL (83-110); Magnesium 1.8 mg/dL (1.6-2.6); Potassium 3.5 mmol/L (3.5-5.1); Sodium 140 mmol/L (136-145)
[2020-02-01] MEDS: metroNIDAZOLE 500 MG in Premix Bag 1 BAG IVPB SCH ×3 (05:16→20:26)
[2020-02-01] MEDS: Morphine 2 MG/ML VIAL SLOW IVP PRN ×3 (05:19→20:29)
[2020-02-01 05:32] LABS: Band 20 % (5-11); Hemoglobin 13.2 g/dL (14.0-18.0); Lymphocytes 4 % (21-51); MDiff Complete? YES; Mean Corpuscular HGB CONC 32.6 g/dL (32.0-36.0); Mean Corpuscular Hemoglobin 32.6 pg (27.0-31.0); Mean Corpuscular Volume 99.9 fL (78.0-98.0); Mean Platelet Volume 7.7 fL (7.4-10.4); Monocytes 4 % (0-10); Neutrophil 72 % (42-75); Platelet Count 218 thou/uL (130-400); RBC Distribution Width 13.2 % (11.5-14.5); Red Blood Cell (RBC) Count 4.05 mill/uL (4.70-6.10); White Blood Cell (WBC) Count 18.3 thou/uL (4.8-10.8)
[2020-02-01] MEDS: Losartan 25 MG TAB PO SCH (09:12)
[2020-02-01] MEDS: Enoxaparin Sodium 40 MG/0.4 ML SYRINGE SC SCH (09:13)
[2020-02-01] MEDS: Sodium Chloride 0.9% 1,000 ML IV SCH (10:47)
--- NOTE | 2020-02-01 19:02 | PDOC.HOSPP ---
- Subjective Encounter Date: 02/01/20 Encounter Time: 11:30 Subjective: Patient up in bed denies any complaints. - Objective Vital Signs & Weight: Vital Signs (12 hours) Temp Pulse Resp BP Pulse Ox 02/01/20 15:50 98.5 F 91 17 124/60 96 02/01/20 12:00 98.6 F 95 16 108/55 L 94 L 02/01/20 09:20 98.4 F 100 17 122/66 94 L Weight Admit Weight 190 lb 6.4 oz Weight 194 lb I&O: 01/31/20 02/01/20 02/02/20 06:59 06:59 06:59 Intake Total 60 1300 1160 Output Total 1225 775 200 Balance -1165 525 960 Result Diagrams: 02/01/20 04:36 02/01/20 04:36 Additional Labs: Accuchecks 02/01/20 02/01/20 01/31/20 10:35 06:01 21:02 POC Glucose 155 H 106 H 133 H Hospitalist ROS - Review of Systems Gastrointestinal: denies: nausea, vomiting, abdominal pain, diarrhea, constipation, melena, hematochezia, other Genitourinary: denies: dysuria, frequency, incontinence, hematuria, retention, other Musculoskeletal: denies: neck pain, shoulder pain, arm pain, back pain, hand pain, leg pain, foot pain, other - Medication Medications: Active Medications Generic Name Dose Route Start Last Admin Trade Name Freq PRN Reason Stop Dose Admin Acetaminophen 650 mg 01/30/20 17:17 01/31/20 20:54 Acetaminophen 325 Mg Tab PO 650 mg Q4H PRN Administration Headache/Fever/Mild Pain (1-3) Atorvastatin Calcium 20 mg 01/30/20 21:00 01/31/20 20:54 Atorvastatin Calcium 20 Mg Tab PO 20 mg HS BILL Administration Diltiazem HCl 120 mg 01/31/20 09:00 02/01/20 09:13 Diltiazem Cd 120 Mg Cap PO 120 mg DAILY BILL Administration Enoxaparin Sodium 40 mg 01/31/20 09:00 02/01/20 09:13 Enoxaparin Sodium 40 Mg/0.4 Ml Syringe SC 40 mg 0900 BILL Administration Ceftriaxone Sodium 1 gm/ 100 mls @ 200 mls/hr 01/31/20 23:00 02/01/20 00:23 Sodium Chloride IVPB Not Given Q24HR BILL Metronidazole 500 mg/ Device 100 mls @ 100 mls/hr 01/31/20 14:00 02/01/20 14:43 IVPB 100 mls Q8HR BILL Administration Morphine Sulfate 2 mg 01/31/20 10:36 02/01/20 11:51 Morphine 2 Mg/Ml Vial SLOW IVP 2 mg Q4H PRN Administration Pain Pantoprazole Sodium 40 mg 01/31/20 09:00 02/01/20 09:12 Pantoprazole 40 Mg Tab PO 40 mg DAILY BILL Administration Vancomycin HCl 125 mg 01/31/20 17:00 02/01/20 16:56 Vancomycin Hcl 25 Mg/Ml Oral PO 125 mg Q6H BILL Administration - Exam Neck: negative: supple, symmetric, no JVD, no thyromegaly, no lymphadenopathy, no carotid bruit, JVD Heart: negative: RRR, no murmur, no gallops, no rubs, normal peripheral pulses, irregular, diminshed peripheral pulses, murmur present, II/IV, III/IV Respiratory: negative: CTAB, no wheezes, no rales, no ronchi, normal chest expansion, no tachypnea, normal percussion, rales, rhonchi, tachypneic, wheezes Gastrointestinal: soft, normal bowel sounds, tender to palpation Hosp A/P (1) C. difficile colitis Code(s): A04.72 - ENTEROCOLITIS D/T CLOSTRIDIUM DIFFICILE, NOT SPCF RECUR Status: Acute (2) Diverticulitis Code(s): K57.92 - DVTRCLI OF INTEST, PART UNSP, W/O PERF OR ABSCESS W/O BLEED Status: Acute (3) Diarrhea Code(s): R19.7 - DIARRHEA, UNSPECIFIED Status: Acute (4) Pancolitis Code(s): K51.00 - ULCERATIVE (CHRONIC) PANCOLITIS WITHOUT COMPLICATIONS Status: Acute (5) Sepsis Code(s): A41.9 - SEPSIS, UNSPECIFIED ORGANISM Status: Acute (6) DMII (diabetes mellitus, type 2) Status: Chronic (7) Lung nodule Code(s): R91.1 - SOLITARY PULMONARY NODULE Status: Acute - Plan Patient continues to have diarrhea however improved from before. We will continue vancomycin oral. patient completed a total of 10-day antibiotics for diverticulitis. Will continue IV antibiotics for diverticulitis for now. We will add probiotic. Patient will require outpatient colonoscopy
[2020-02-01] MEDS: Ipratropium Bromide 2.5 ml Neb NEB SCH (19:22)
[2020-02-01] MEDS: Mometasone 200 MCG/Formoterol 5 MCG 120 PUFF INHALER INH SCH (19:22)
[2020-02-01] MEDS: Brimonidine Tartrate 0.2% Ophth Soln 5 ml Bottle EA EYE SCH (20:24)
[2020-02-01] MEDS: Atorvastatin Calcium 20 MG TAB PO SCH (20:25)
[2020-02-02] MEDS: Ipratropium Bromide 2.5 ml Neb NEB SCH ×4 (00:39→18:31)
[2020-02-02 04:45] LABS: ALT (SGPT) 9 U/L (8-55); AST (SGOT) 16 U/L (5-34); Albumin 2.6 g/dL (3.4-4.8); Alkaline Phosphatase 62 U/L (40-110); Anion Gap 11 mmol/L (10-20); BUN (Urea Nitrogen) 18 mg/dL (8.4-25.7); Bilirubin, Total 0.4 mg/dL (0.2-1.2); Calc. Creatinine Clearance 88 mL/min (70-130); Calcium 7.3 mg/dL (7.8-10.44); Carbon Dioxide 22 mmol/L (23-31); Chloride 110 mmol/L (98-107); Estimated GFR-MDRD 89; Globulin 2.3 g/dL (2.4-3.5); Glucose 114 mg/dL (83-110); Potassium 3.4 mmol/L (3.5-5.1); Protein, Total 4.9 g/dL (5.8-8.1); Sodium 140 mmol/L (136-145)
[2020-02-02 05:19] LABS: Band 38 % (5-11); Eosinophils 2 % (0-10); Hemoglobin 12.7 g/dL (14.0-18.0); Lymphocytes 5 % (21-51); MDiff Complete? YES; Mean Corpuscular Hemoglobin 32.9 pg (27.0-31.0); Mean Corpuscular Volume 99.6 fL (78.0-98.0); Mean Platelet Volume 8.6 fL (7.4-10.4); Monocytes 3 % (0-10); Neutrophil 52 % (42-75); Platelet Count 224 thou/uL (130-400); RBC Distribution Width 13.2 % (11.5-14.5); Red Blood Cell (RBC) Count 3.85 mill/uL (4.70-6.10); White Blood Cell (WBC) Count 15.8 thou/uL (4.8-10.8)
[2020-02-02] MEDS: Vancomycin HCl 25 MG/ML Oral PO SCH ×3 (05:22→16:04)
[2020-02-02] MEDS: metroNIDAZOLE 500 MG in Premix Bag 1 BAG IVPB SCH ×2 (05:22→14:13)
[2020-02-02] MEDS: Mometasone 200 MCG/Formoterol 5 MCG 120 PUFF INHALER INH SCH ×2 (07:37→18:26)
[2020-02-02] MEDS: Enoxaparin Sodium 40 MG/0.4 ML SYRINGE SC SCH (08:00)
[2020-02-02] MEDS: Furosemide 40 MG TAB PO SCH (08:01)
[2020-02-02] MEDS: Saccharomyces boulardii 250 MG CAP PO SCH (08:01)
[2020-02-02] MEDS: Montelukast Sodium 10 mg Tablet PO SCH (08:01)
[2020-02-02] MEDS: Aspirin Chewable 81 MG TAB PO SCH (08:02)
[2020-02-02] MEDS: Brimonidine Tartrate 0.2% Ophth Soln 5 ml Bottle EA EYE SCH ×2 (08:33→20:24)
[2020-02-02] MEDS ORDERED: Atorvastatin Calcium 40 MG TAB PO SCH (09:00)
[2020-02-02] MEDS ORDERED: DILTIAZEM HCL 360 MG PO SCH (09:00)
--- NOTE | 2020-02-02 15:29 | PDOC.HOSPP ---
- Subjective Encounter Date: 02/02/20 Encounter Time: 15:27 Subjective: Mr. Camp was seen today in follow-up of C. Diff Colitis. He says he continues to have some diarrhea, and notes lower abdominal pain. He also feels very bloated. - Objective Vital Signs & Weight: Vital Signs (12 hours) Temp Pulse Resp BP Pulse Ox 02/02/20 12:15 98.1 F 94 16 159/67 H 95 02/02/20 08:15 97.9 F 94 17 125/60 94 L 02/02/20 07:38 93 L 02/02/20 07:37 98 20 93 L 02/02/20 04:00 97.3 F L 87 20 116/55 L 96 Weight Admit Weight 190 lb 6.4 oz Weight 193 lb 3.2 oz I&O: 02/01/20 02/02/20 02/03/20 06:59 06:59 06:59 Intake Total 1300 1260 Output Total 775 450 Balance 525 810 Result Diagrams: 02/02/20 04:14 02/02/20 04:14 Additional Labs: Accuchecks 02/02/20 02/02/20 02/01/20 10:42 06:06 20:52 POC Glucose 155 H 97 113 H Hospitalist ROS - Medication Medications: Active Medications Generic Name Dose Route Start Last Admin Trade Name Freq PRN Reason Stop Dose Admin Acetaminophen 650 mg 01/30/20 17:17 01/31/20 20:54 Acetaminophen 325 Mg Tab PO 650 mg Q4H PRN Administration Headache/Fever/Mild Pain (1-3) Aspirin 81 mg 02/02/20 09:00 02/02/20 08:02 Aspirin Chewable 81 Mg Tab PO 81 mg DAILY BILL Administration Atorvastatin Calcium 20 mg 01/30/20 21:00 02/01/20 20:25 Atorvastatin Calcium 20 Mg Tab PO 20 mg HS BILL Administration Brimonidine Tartrate 1 drop 02/01/20 21:00 02/02/20 08:33 Brimonidine Tartrate 0.2% Ophth Soln 5 Ml Bottle EA EYE Not Given BID BILL Diltiazem HCl 120 mg 01/31/20 09:00 02/02/20 08:00 Diltiazem Cd 120 Mg Cap PO 120 mg DAILY BILL Administration Enoxaparin Sodium 40 mg 01/31/20 09:00 02/02/20 08:00 Enoxaparin Sodium 40 Mg/0.4 Ml Syringe SC 40 mg 0900 BILL Administration Furosemide 40 mg 02/02/20 09:00 02/02/20 08:01 Furosemide 40 Mg Tab PO 40 mg DAILY BILL Administration Ceftriaxone Sodium 1 gm/ 100 mls @ 200 mls/hr 01/31/20 23:00 02/01/20 23:05 Sodium Chloride IVPB 100 mls Q24HR BILL Administration Metronidazole 500 mg/ Device 100 mls @ 100 mls/hr 01/31/20 14:00 02/02/20 14:13 IVPB 100 mls Q8HR BILL Administration Ipratropium [place] 2.5 ml 02/01/20 19:00 02/02/20 13:19 Ipratropium [place] 2.5 Ml Neb NEB Not Given [id number] BILL Mometasone Furoate/Formoterol Fumar 2 puff 02/01/20 18:30 02/02/20 07:37 Mometasone 200 Mcg/Formoterol 5 Mcg 120 Puff Inhaler INH 2 puff BID-RT BILL Administration Montelukast Sodium 10 mg 02/02/20 09:00 02/02/20 08:01 Montelukast Sodium 10 Mg Tablet PO 10 mg DAILY BILL Administration Morphine Sulfate 2 mg 01/31/20 10:36 02/01/20 20:29 Morphine 2 Mg/Ml Vial SLOW IVP 2 mg Q4H PRN Administration Pain Pantoprazole Sodium 40 mg 01/31/20 09:00 02/02/20 08:01 Pantoprazole 40 Mg Tab PO 40 mg DAILY BILL Administration Saccharomyces Boulardii 250 mg 02/02/20 09:00 02/02/20 08:01 Saccharomyces Boulardii 250 Mg Cap PO 250 mg DAILY BILL Administration Sodium Chloride 10 ml 02/01/20 21:00 02/02/20 08:33 Flush - Normal Saline 10 Ml Syringe IVF 10 ml Q12HR BILL Administration Vancomycin HCl 125 mg 01/31/20 17:00 02/02/20 11:20 Vancomycin Hcl 25 Mg/Ml Oral PO 125 mg Q6H BILL Administration - Exam Eye: PERRL, anicteric sclera Heart: RRR, no murmur, no gallops, no rubs, normal peripheral pulses Respiratory: CTAB, no wheezes, no rales, no ronchi, normal chest expansion, no tachypnea, normal percussion Gastrointestinal: normal bowel sounds, tender to palpation (+ mild lower abdominal tenderness no rebound or guarding), distended (+ tympanic to percussion) Extremities: no cyanosis, no edema Hosp A/P (1) C. difficile colitis Code(s): A04.72 - ENTEROCOLITIS D/T CLOSTRIDIUM DIFFICILE, NOT SPCF RECUR Status: Acute (2) COPD (chronic obstructive pulmonary disease) Status: Chronic (3) DMII (diabetes mellitus, type 2) Status: Chronic (4) History of prostate cancer Code(s): Z85.46 - PERSONAL HISTORY OF MALIGNANT NEOPLASM OF PROSTATE Status: Chronic - Plan * C. Diff Colitis- stable- will continue oral Vancomycin, serial abdominal exams * Will discontinue Rocephin and Flagyl * Continue to monitor electrolytes * Patient's and daughter's questions answered * DM- blood glucose is stable * COPD- stable
[2020-02-02] MEDS: Morphine 2 MG/ML VIAL SLOW IVP PRN (16:04)
[2020-02-02] MEDS: Calcium Carbonate 500 MG ChewTAB PO PRN (18:37)
[2020-02-02] MEDS ORDERED: Potassium Chloride 20 MEQ TAB PO SCH (19:00)
[2020-02-02] MEDS: Atorvastatin Calcium 20 MG TAB PO SCH (20:19)
[2020-02-03] MEDS: Ipratropium Bromide 2.5 ml Neb NEB SCH ×3 (00:13→12:49)
[2020-02-03] MEDS: Vancomycin HCl 25 MG/ML Oral PO SCH ×4 (00:31→16:36)
[2020-02-03 04:55] LABS: Anion Gap 13 mmol/L (10-20); BUN (Urea Nitrogen) 15 mg/dL (8.4-25.7); Calc. Creatinine Clearance 85 mL/min (70-130); Calcium 7.6 mg/dL (7.8-10.44); Carbon Dioxide 24 mmol/L (23-31); Chloride 109 mmol/L (98-107); Estimated GFR-MDRD 86; Glucose 107 mg/dL (83-110); Magnesium 1.7 mg/dL (1.6-2.6); Potassium 3.6 mmol/L (3.5-5.1); Sodium 142 mmol/L (136-145)
[2020-02-03 05:06] LABS: Band 19 % (5-11); Eosinophils 3 % (0-10); Lymphocytes 7 % (21-51); MDiff Complete? YES; Mean Corpuscular HGB CONC 32.7 g/dL (32.0-36.0); Monocytes 6 % (0-10); Myelocyte 1 % (0-0); Neutrophil 64 % (42-75); Platelet Count 232 thou/uL (130-400); Red Blood Cell (RBC) Count 4.06 mill/uL (4.70-6.10); White Blood Cell (WBC) Count 9.8 thou/uL (4.8-10.8)
[2020-02-03] MEDS: Mometasone 200 MCG/Formoterol 5 MCG 120 PUFF INHALER INH SCH (07:32)
[2020-02-03] MEDS: Saccharomyces boulardii 250 MG CAP PO SCH (09:49)
[2020-02-03] MEDS: Montelukast Sodium 10 mg Tablet PO SCH (09:51)
[2020-02-03] MEDS: Furosemide 40 MG TAB PO SCH (09:51)
[2020-02-03] MEDS: Enoxaparin Sodium 40 MG/0.4 ML SYRINGE SC SCH (09:51)
[2020-02-03] MEDS: Aspirin Chewable 81 MG TAB PO SCH (09:51)
[2020-02-03] MEDS: Brimonidine Tartrate 0.2% Ophth Soln 5 ml Bottle EA EYE SCH (09:53)
[2020-02-03] MEDS: Calcium Carbonate 500 MG ChewTAB PO PRN (14:13)
--- NOTE | 2020-02-03 14:32 | PDOC.HOSPP ---
- Subjective Encounter Date: 02/03/20 Encounter Time: 14:30 Subjective: Mr. Camp was seen today in follow-up of C. Diff Colitis. He says he feels better. He had one semi-formed stool today. He notes bloating, but says he is "bloated all the time". His granddaughter is at the bedside and confirms this. She tells me this degree of bloating is " normal ". - Objective Vital Signs & Weight: Vital Signs (12 hours) Temp Pulse Pulse Pulse Pulse Resp BP 02/03/20 12:49 99 20 02/03/20 11:53 94 20 02/03/20 11:35 94 105 H 105 H 02/03/20 09:50 97 143/68 H 02/03/20 08:00 97.7 F 16 02/03/20 07:36 02/03/20 07:34 103 H 20 02/03/20 07:32 103 H 20 02/03/20 03:02 98.8 F 94 16 BP BP BP Pulse Ox Pulse Ox 02/03/20 12:49 93 L 02/03/20 11:53 135/66 94 L 02/03/20 11:35 135/66 132/65 96 02/03/20 09:50 02/03/20 08:00 143/68 H 93 L 02/03/20 07:36 93 L 02/03/20 07:34 95 02/03/20 07:32 95 02/03/20 03:02 140/70 94 L Weight Admit Weight 190 lb 6.4 oz Weight 193 lb 4.8 oz I&O: 02/02/20 02/03/20 02/04/20 06:59 06:59 06:59 Intake Total 1260 880 480 Output Total 450 900 Balance 810 -20 480 Result Diagrams: 02/03/20 04:13 02/03/20 04:13 Additional Labs: Accuchecks 02/03/20 02/03/20 02/02/20 10:44 05:25 20:32 POC Glucose 135 H 95 134 H 02/02/20 16:46 POC Glucose 133 H Hospitalist ROS - Medication Medications: Active Medications Generic Name Dose Route Start Last Admin Trade Name Freq PRN Reason Stop Dose Admin Acetaminophen 650 mg 01/30/20 17:17 01/31/20 20:54 Acetaminophen 325 Mg Tab PO 650 mg Q4H PRN Administration Headache/Fever/Mild Pain (1-3) Aspirin 81 mg 02/02/20 09:00 02/03/20 09:51 Aspirin Chewable 81 Mg Tab PO 81 mg DAILY BILL Administration Atorvastatin Calcium 20 mg 01/30/20 21:00 02/02/20 20:19 Atorvastatin Calcium 20 Mg Tab PO 20 mg HS BILL Administration Brimonidine Tartrate 1 drop 02/01/20 21:00 02/03/20 09:53 Brimonidine Tartrate 0.2% Ophth Soln 5 Ml Bottle EA EYE Not Given BID BILL Calcium Carbonate 1,000 mg 02/02/20 18:25 02/03/20 14:13 Calcium Carbonate 500 Mg Chewtab PO 1,000 mg DAILYPRN PRN Administration Heartburn or Indigestion Diltiazem HCl 120 mg 01/31/20 09:00 02/03/20 09:50 Diltiazem Cd 120 Mg Cap PO 120 mg DAILY BILL Administration Enoxaparin Sodium 40 mg 01/31/20 09:00 02/03/20 09:51 Enoxaparin Sodium 40 Mg/0.4 Ml Syringe SC 40 mg 0900 BILL Administration Furosemide 40 mg 02/02/20 09:00 02/03/20 09:51 Furosemide 40 Mg Tab PO 40 mg DAILY BILL Administration Ipratropium [place] 2.5 ml 02/01/20 19:00 02/03/20 12:49 Ipratropium [place] 2.5 Ml Neb NEB 2.5 ml [id number] BILL Administration Mometasone Furoate/Formoterol Fumar 2 puff 02/01/20 18:30 02/03/20 07:32 Mometasone 200 Mcg/Formoterol 5 Mcg 120 Puff Inhaler INH 2 puff BID-RT BILL Administration Montelukast Sodium 10 mg 02/02/20 09:00 02/03/20 09:51 Montelukast Sodium 10 Mg Tablet PO 10 mg DAILY BILL Administration Morphine Sulfate 2 mg 01/31/20 10:36 02/02/20 16:04 Morphine 2 Mg/Ml Vial SLOW IVP 2 mg Q4H PRN Administration Pain Pantoprazole Sodium 40 mg 01/31/20 09:00 02/03/20 09:51 Pantoprazole 40 Mg Tab PO 40 mg DAILY BILL Administration Saccharomyces Boulardii 250 mg 02/02/20 09:00 02/03/20 09:49 Saccharomyces Boulardii 250 Mg Cap PO 250 mg DAILY BILL Administration Sodium Chloride 10 ml 02/01/20 21:00 02/03/20 10:44 Flush - Normal Saline 10 Ml Syringe IVF 10 ml Q12HR BILL Administration Vancomycin HCl 125 mg 01/31/20 17:00 02/03/20 12:39 Vancomycin Hcl 25 Mg/Ml Oral PO 125 mg Q6H BILL Administration - Exam Eye: PERRL, anicteric sclera Heart: RRR, no murmur, no gallops, no rubs, normal peripheral pulses Respiratory: CTAB, no wheezes, no rales, no ronchi, normal chest expansion, no tachypnea, normal percussion Gastrointestinal: soft (mildly distended, but soft, non-tenderness), no guarding, no rigidity Extremities: no cyanosis, 2+ LE edema Hosp A/P (1) C. difficile colitis Code(s): A04.72 - ENTEROCOLITIS D/T CLOSTRIDIUM DIFFICILE, NOT SPCF RECUR Status: Acute (2) COPD (chronic obstructive pulmonary disease) Status: Chronic (3) DMII (diabetes mellitus, type 2) Status: Chronic (4) History of prostate cancer Code(s): Z85.46 - PERSONAL HISTORY OF MALIGNANT NEOPLASM OF PROSTATE Status: Chronic - Plan * C. Diff Colitis- stable- likely due to antiiotics for the treatment of recent diverticulitis * He can be discharged home on oral Vancomycin * Warning signs of when to return to the hospital were explained to the patient * Stable for discharge home
[2020-02-03 17:24] VITALS: BP 140/70; TEMP 98
--- NOTE | 2020-02-04 02:20 | DIS ---
DATE OF ADMISSION: 01/30/2020 DATE OF DISCHARGE: 02/03/2020 PRIMARY CARE PHYSICIAN: Jewel Cooper MD DISCHARGE DISPOSITION: Home. DISCHARGE DIAGNOSES: 1. Clostridium difficile colitis. 2. Recent treatment for diverticulitis. 3. Prostate cancer. 4. Chronic obstructive pulmonary disease. 5. Diabetes mellitus type 2. 6. Hyperlipidemia. 7. Congestive heart failure, unknown type. DISCHARGE MEDICATIONS: 1. Vancomycin 125 mg one capsule p.o. q.i.d. for 12 days ago. 2. Zocor 40 mg at bedtime. 3. Protonix 40 mg daily. 4. Florastor 250 mg p.o. daily. 5. Symbicort 160/4.5 two puffs twice a day. 6. Spiriva 18 mcg inhaled daily. 7. Montelukast 10 mg p.o. daily. 8. Glipizide 5 mg 1/2 tablet daily. 9. Furosemide 40 mg p.o. daily. 10. Diltiazem extended release 360 mg p.o. daily. 11. Losartan 25 mg p.o. daily. 12. Cetirizine generic for Zyrtec 10 mg p.o. daily. 13. Brimonidine eye drops in each eye b.i.d. 14. Atorvastatin 40 mg daily. 15. Aspirin 325 mg p.o. daily. IMAGING DURING THE HOSPITAL STAY: The patient had a CT scan of the abdomen and pelvis with contrast demonstrating diffuse colitis with segmental diverticulitis in the ascending colon and descending colon. There is no evidence of abscess formation, evidence of mild splenomegaly. CODE STATUS: Full code. ALLERGIES: TO PENICILLIN. HOSPITAL COURSE: Mr. Camp is a very pleasant 79-year-old gentleman, who presented to the emergency room with complaints of abdominal pain and diarrhea. He had recently been treated for diverticulitis. He was on two antibiotics and says that after about a week, he started feeling better for about 2 days and then, it seemed like things started all over again. At this time with pain in the lower abdomen and diarrhea. He was evaluated in the ER and found to have evidence of pulido colitis by CT scan. Stool cultures were done, which grew Clostridium difficile or the toxin was isolated. He was started on oral vancomycin. Over the course of the next couple of days, his symptoms improved, so much so that he was able to be discharged home on 02/03/2020. His white count had returned back to normal. There was no fever. He was tolerating p.o. On exam, he did have some abdominal bloating, but his belly was soft and nontender and the patient as well as the patient's granddaughter stated that this degree of bloating was normal for him as he has had this off and on for a number of years. Since the patient was symptomatically improved, he was discharged home. Warning signs of when to return to the hospital are given. For example, worsening abdominal pain, significant increase in abdominal bloating, fever, return of symptoms, etc. He is to follow up with his primary care physician in 1 week. Job ID: [id number]
== END 2020-02-03 16:40 | disposition home or self-care (01) | DRG 872 ==
LOC: ERS 16:24 → 2NO 17:08
PROVIDERS: ADMIT Internal Medicine; ATTEND Internal Medicine
DX: A41.9 Sepsis, unspecified organism (principal); A04.72 Enterocolitis due to Clostridium difficile, not specified as recurrent; K57.32 Diverticulitis of large intestine without perforation or abscess without bleeding; K51.00 Ulcerative (chronic) pancolitis without complications; Z20.828 Contact with and (suspected) exposure to other viral communicable diseases; C61 Malignant neoplasm of prostate; J44.9 Chronic obstructive pulmonary disease, unspecified; E11.9 Type 2 diabetes mellitus without complications; E78.5 Hyperlipidemia, unspecified; I50.9 Heart failure, unspecified; K21.9 Gastro-esophageal reflux disease without esophagitis; R33.9 Retention of urine, unspecified; R91.1 Solitary pulmonary nodule; Z88.0 Allergy status to penicillin; Z87.891 Personal history of nicotine dependence; Z98.49 Cataract extraction status, unspecified eye; Z79.899 Other long term (current) drug therapy; Z79.51 Long term (current) use of inhaled steroids; Z79.2 Long term (current) use of antibiotics; Z79.84 Long term (current) use of oral hypoglycemic drugs
CPT/HCPCS: 36415; 36416; 51702; 71045; 80048; 80053; 83605; 83735; 84145; 85025; 87040; 87324; 87449; 87635; 94640; 96365; 96366; 96375; J0696; J1650; J2270; J2543; J3370; J3475; J3480; J3490; J7050; U0003

== ENCOUNTER 2020-02-29 10:22 | Inpatient (IN) | payer MEDICARE, BC, OTHER ==
[2020-02-29] MEDS ORDERED: Cefepime 2 GM in Sodium Chloride 0.9% 100 ML IVPB SCH (10:30)
[2020-02-29] MEDS ORDERED: Acetaminophen 500 MG TAB PO SCH (10:45)
[2020-02-29] MEDS ORDERED: Acetaminophen 500 MG TAB ONE (11:01)
[2020-02-29] MEDS ORDERED: metroNIDAZOLE 500 MG/100 ML BAG ONE (11:01)
[2020-02-29] MEDS ORDERED: Cefepime 2 GM VIAL ONE (11:01)
[2020-02-29 11:07] LABS: Hemoglobin 14.3 g/dL (14.0-18.0); Mean Corpuscular Hemoglobin 32.9 pg (27.0-31.0); Mean Corpuscular Volume 96.8 fL (78.0-98.0); Mean Platelet Volume 8.2 fL (7.4-10.4); Platelet Count 249 thou/uL (130-400); RBC Distribution Width 13.7 % (11.5-14.5); Red Blood Cell (RBC) Count 4.34 mill/uL (4.70-6.10)
[2020-02-29] MEDS ORDERED: Sodium Chloride 0.9% 2,500 ML IV SCH (11:15)
[2020-02-29] MEDS ORDERED: Vancomycin HCl 1.25 GM in Sodium Chloride 0.9% 250 ML 250 ML IVPB SCH (11:15)
--- NOTE | 2020-02-29 11:27 | RAD ---
EXAM: CHEST ONE VIEW HISTORY: Tachypnea. Abdominal pain. COMPARISON: 01/31/2020 FINDINGS: Cardiac silhouette is magnified by patient rotation and portable technique but stable in size. Pulmon bartolo vasculature is mildly prominent centrally, but this also represents a stable finding. Bibasilar linear densities are seen likely due to mild volume loss and scarring. There is suggestion of blunting of the left lateral costophrenic angle, but the patient is rotated to the left, and this may be artifactual related to overlying soft tissue density. However, tiny left pleural effusion cannot be entirely excluded. No consolidation or large pleural effusion is present. Vascular calcifications are seen in thoracic aorta. No other change. IMPRESSION: Slight blunting left lateral costophrenic angle thought to be artifactual secondary to overlying soft tissue density as patient is rotated to the left. However, tiny left pleural effusion is difficult to entirely exclude. There is otherwise no acute cardiopulmonary process.
[2020-02-29 11:28] LABS: ALT (SGPT) 9 U/L (8-55); AST (SGOT) 11 U/L (5-34); Albumin 3.6 g/dL (3.4-4.8); Alkaline Phosphatase 95 U/L (40-110); Anion Gap 19 mmol/L (10-20); BUN (Urea Nitrogen) 21 mg/dL (8.4-25.7); Band 13 % (5-11); Calc. Creatinine Clearance 0 mL/min (70-130); Calcium 8.9 mg/dL (7.8-10.44); Carbon Dioxide 22 mmol/L (23-31); Chloride 104 mmol/L (98-107); Estimated GFR-MDRD 57; Globulin 2.6 g/dL (2.4-3.5); Glucose 132 mg/dL (83-110); Lipase Less than 4 U/L (8-78); Lymphocytes 18 % (21-51); MDiff Complete? YES; Monocytes 3 % (0-10); Neutrophil 66 % (42-75); Platelet Morphology Comment Appears Adequate; Potassium 3.4 mmol/L (3.5-5.1); Protein, Total 6.2 g/dL (5.8-8.1); Sodium 142 mmol/L (136-145)
[2020-02-29] MEDS ORDERED: metroNIDAZOLE 500 MG in Premix Bag 1 BAG IVPB SCH (11:30)
[2020-02-29 11:51] LABS: CKMB 0.9 ng/mL (0-6.6)
--- NOTE | 2020-02-29 12:24 | CT ---
CT ABDOMEN AND PELVIS WITH IV CONTRAST 02/29/2020 CLINICAL INFORMATION: Abdominal pain. Recent discharge from hospital secondary to C. difficile. COMPARISON: 01/30/2020 Technique: Multiple contiguous axial CT images are obtained through the abdomen and pelvis with IV contrast. Cor onal reformatted images are provided. FINDINGS: Lower Chest: Vascular calcifications are seen in the coronary arteries and thoracic aorta with calcif ication in the mitral valve annulus. Calcified right hilar lymph nodes are present. Linear densities are seen at the left lung base likely representing a combination of atelectasis and mild sc arring. A stable 5 mm pulmonary nodule is seen at the right posterior costophrenic angle. This nodule is also stable when compared to study on 05/27/2017. Vessels: Vascular calcifications are present in the abdominal aorta and involving the iliac arteries. A retroaortic left renal vein is again present. Abdomen: Portal vein:Patent Gallbladder: Within normal limits for CT imaging. Liver: within normal limits. Spleen: Mildly enlarged measuring 14 cm in craniocaudal dimensions which is stable. Pancreas: within normal limits. Adrenals: within normal limits. Kidneys: within normal limits. Bowel: Again noted is colonic diverticulosis throughout the colon. There is circumferential wall thic kening involving the colon seen extending from the cecum to the mid descending colon with associated pericolonic inflammatory stranding present. Suggested wall thickening involving the sigmoi d colon on the prior exam is not appreciated on today's exam. The pericolonic inflammatory stranding has slightly improved as well likely slight improvement in wall thickening involving the as cending colon. Findings may be related to pseudomembranous colitis given more diffuse involvement of the colon as opposed to segmental areas of diverticulitis. Appendix: The appendix is visualized and normal in caliber. Peritoneum: No ascites or free air; no fluid collection. Mesentery and Retroperitoneum: No enlarged mesenteric or retroperitoneal lymph nodes. Abdominal Wall: Minimal nonspecific stranding in the anterior abdominal adipose soft tissues in the s upra and umbilical location just to the left of midline. This is a stable finding compared to prior exam related to minimal subcutaneous edema. Pelvis: Reproductive Organs: Prostate calcifications visualized. Bladder: There is linear stranding seen within the right anterolateral aspect of the pelvis near the region of the inguinal canal related to scarring secondary to prior hernia repair Bones: Degenerative changes are again seen in the spine. No suspicious lytic or sclerotic osseous les ions are identified. IMPRESSION: 1. Colonic wall thickening extending from the cecum to the mid descending colon with pericolonic infl ammatory stranding present. Degrees of inflammatory stranding and bowel wall thickening appear slightly improved from prior study. Given more diffuse involvement of the colon, these findings may b e related to pseudomembranous colitis as opposed to segmental diverticulitis. 2. Stable mild splenomegaly. 3. Stable pulmonary nodule right lung base.
[2020-02-29] MEDS ORDERED: Aspirin Chewable 81 MG TAB ONE (12:39)
[2020-02-29] MEDS ORDERED: Vancomycin HCl 25 MG/ML Oral PO SCH ×2 (13:45→14:30)
[2020-02-29] MEDS ORDERED: Iopamidol-370 76% 500 ML 1 ML ONE (14:06)
[2020-02-29 14:57] LABS: Lactic Acid 2.1 mmol/L (0.5-2.2)
[2020-02-29] MEDS ORDERED: Acetaminophen 325 MG TAB PO PRN (15:08)
[2020-02-29] MEDS ORDERED: Dextrose 5% in Water 1,000 ML IV PRN (15:14)
[2020-02-29] MEDS ORDERED: Dextrose 50% Abboject 50 ML SYRINGE SLOW IVP PRN (15:14)
[2020-02-29] MEDS ORDERED: HumaLOG 300 UNITS/3 ML VIAL SC PRN (15:14)
[2020-02-29] MEDS ORDERED: Sodium Chloride 0.9% 1,000 ML IV SCH (15:15)
[2020-02-29 15:45] LABS: Troponin I 0.011 ng/mL (< 0.028)
[2020-02-29 17:49] VITALS: BMI 30.6
[2020-02-29 18:22] LABS: Lactic Acid 1.4 mmol/L (0.5-2.2)
[2020-02-29 18:27] LABS: Troponin I Less than 0.010 ng/mL (< 0.028)
[2020-02-29] MEDS: Vancomycin HCl 25 MG/ML Oral PO SCH (18:54)
[2020-02-29] MEDS: Ipratropium Bromide 2.5 ml Neb NEB SCH (19:21)
[2020-02-29] MEDS: Mometasone 200 MCG/Formoterol 5 MCG 120 PUFF INHALER INH SCH (19:31)
[2020-02-29 19:37] LABS: Bacteria/HPF None Seen HPF (None Seen); Bilirubin Negative (Negative); Blood, Urine Negative (Negative); Clarity Clear (Clear); Glucose, Urine (Dipstick) Normal (Negative); Ketone, Urine Negative (Negative); Leukocyte Negative Leu/uL (Negative); Nitrite Negative (Negative); Protein, Urine (Dipstick) 50 mg/dL (Neg-Trace); RBC/HPF 0-3 HPF (0-3); Squamous Epithelial None Seen HPF (0-3); Urobilinogen Normal mg/dL (Less than 2); WBC/HPF 0-3 HPF (0-3); pH, Urine 6.5 (5.0-9.0)
[2020-02-29 19:42] LABS: Specific Gravity, Urine 1.046 (1.002-1.036)
[2020-02-29 19:43] LABS: Urine Culture Reflex No No
[2020-02-29 20:11] LABS: Lactic Acid 1.7 mmol/L (0.5-2.2)
[2020-02-29 20:14] LABS: Anion Gap 13 mmol/L (10-20); BUN (Urea Nitrogen) 19 mg/dL (8.4-25.7); Calc. Creatinine Clearance 84 mL/min (70-130); Carbon Dioxide 22 mmol/L (23-31); Chloride 109 mmol/L (98-107); Estimated GFR-MDRD 87; Glucose 150 mg/dL (83-110); Potassium 3.1 mmol/L (3.5-5.1); Sodium 141 mmol/L (136-145)
[2020-02-29] MEDS: metroNIDAZOLE 500 MG in Premix Bag 1 BAG IVPB SCH (20:37)
[2020-02-29] MEDS: Montelukast Sodium 10 mg Tablet PO SCH (20:38)
--- NOTE | 2020-02-29 21:09 | HP ---
CHIEF COMPLAINT: Abdominal pain and diarrhea. HISTORY OF PRESENT ILLNESS: The patient is a very pleasant 79-year-old male, who was just discharged from the hospital on February 03 with Clostridium difficile colitis and he had a recent treatment of diverticulitis also. The patient states that he finished his vancomycin, which he has been very compliant with about last week. However, on Tuesday, he was doing well. However, on Tuesday, started having diarrhea about three or four diarrhea a day. He then on Tuesday, started having some lower abdominal pain to the point that he started feeling more weak and the diarrhea got worse. He came into the ER for further evaluation. Denies any fevers, chills, any nausea, vomiting. The patient initially was diagnosed with diverticulitis, was put on antibiotics and then had C. difficile and was put on oral vancomycin, which he completed. PAST MEDICAL HISTORY: The patient has a history of; 1. Prostate cancer. 2. COPD. 3. Diabetes. 4. Hyperlipidemia. 5. CHF. PAST SURGICAL HISTORY: He has had prostate surgery and cataract surgery. SOCIAL HISTORY: He is a former smoker. Denies any alcohol use or drug use. He is a full code. Lives with his . ALLERGIES: HE IS ALLERGIC TO PENICILLIN. MEDICATIONS: As of the following, he is on; 1. Zocor 40 mg daily. 2. Protonix 40 mg daily. 3. Florastor 250 daily. 4. Symbicort 160-4.5 two puffs twice a day. 5. Spiriva 18 mcg inhaled daily. 6. Montelukast 10 mg daily. 7. Glipizide 5 mg half tablet daily. 8. Furosemide 40 mg daily. 9. Diltiazem 360 mg daily. 10. Losartan 25 mg daily. 11. Atorvastatin 40 mg daily, I am not sure why he is on two. 12. Aspirin 325 daily. REVIEW OF SYSTEMS: All negative except for the ones mentioned above in the HPI. PHYSICAL EXAMINATION: VITAL SIGNS: As of the following; temperature of 98.1, O2 saturations 96% on room air, respiratory rate 14, heart rate 81, and blood pressure 136/64. GENERAL: He is awake, alert, and oriented x3. Does not appear in distress. CV: S1 and S2 present. No murmurs, rubs, or gallops. ABDOMEN: Soft and nontender. Bowel sounds are present x2. LUNGS: Clear to auscultation. No rhonchi or wheezes noted. NEUROLOGIC: Neurovascular carbajal, no focal deficits noted. SKIN: No cuts, lesions, or bruises noted. LABORATORY RESULTS: As of the following; WBCs of 22.0, hemoglobin of 14.3, hematocrit of 42.0, and his platelets are 249. He has bandemia at 13. Chemistry; sodium of 142, potassium of 3.4, BUN of 21, and creatinine 1.26. His lactic acid is 3.7. Mildly elevated troponins of 0.041. He did have a CT of abdomen and pelvis and a chest x-ray. The CT of abdomen and pelvis indicated colonic wall thickening extending into the cecum in the mid descending colon with pericolonic inflammatory stranding present, degree of inflammation stranding, and bowel wall thickening, slightly improved from prior study. However, he has more diffuse involvement of the colon, most likely pseudomembranous colitis as opposed to segmental diverticulitis. Stable splenomegaly and he has stable pulmonary nodule to the right lung base. ASSESSMENT AND PLAN: The patient is a very pleasant 79-year-old male, who presents to the hospital with complaints of abdominal pain and diarrhea. 1. Sepsis most likely secondary to his recurrent Clostridium difficile. I will start him on vancomycin 500 mg q.i.d. He will most likely require a tapering dose since this is the second time getting C. diff. I will hold off on any additional antibiotics for diverticulitis. I do not believe, I think he did have diverticulitis. He was supposed to follow up with Gastroenterology for a colonoscopy. I will do Flagyl and oral vancomycin. I did talk with Gastroenterology and they have been consulted. Start him on some gentle hydration and continue to monitor. 2. Lactic acidosis, most likely secondary to his problem #1. 3. Hypertension. We will continue his home medications. 4. Diabetes. We will continue his home medication. 5. Deep venous thrombosis prophylaxis. We will put the patient on subcu Lovenox. Job ID: [id number]
[2020-03-01] MEDS: Ipratropium Bromide 2.5 ml Neb NEB SCH ×5 (00:12→23:53)
[2020-03-01] MEDS: Vancomycin HCl 25 MG/ML Oral PO SCH ×5 (00:57→23:29)
[2020-03-01] MEDS: metroNIDAZOLE 500 MG in Premix Bag 1 BAG IVPB SCH ×3 (04:46→21:08)
[2020-03-01 05:31] LABS: Anion Gap 14 mmol/L (10-20); BUN (Urea Nitrogen) 14 mg/dL (8.4-25.7); Calc. Creatinine Clearance 94 mL/min (70-130); Calcium 8.1 mg/dL (7.8-10.44); Carbon Dioxide 22 mmol/L (23-31); Chloride 109 mmol/L (98-107); Estimated GFR-MDRD Greater than 90; Glucose 112 mg/dL (83-110); Sodium 142 mmol/L (136-145)
[2020-03-01 05:53] LABS: Band 46 % (5-11); Hemoglobin 13.1 g/dL (14.0-18.0); Lymphocytes 2 % (21-51); MDiff Complete? YES; Mean Corpuscular HGB CONC 34.4 g/dL (32.0-36.0); Mean Corpuscular Hemoglobin 33.2 pg (27.0-31.0); Mean Corpuscular Volume 96.6 fL (78.0-98.0); Monocytes 3 % (0-10); Neutrophil 49 % (42-75); Platelet Count 188 thou/uL (130-400); RBC Distribution Width 13.6 % (11.5-14.5); Red Blood Cell (RBC) Count 3.93 mill/uL (4.70-6.10); White Blood Cell (WBC) Count 13.9 thou/uL (4.8-10.8)
[2020-03-01 06:18] LABS: Lactic Acid 0.9 mmol/L (0.5-2.2)
[2020-03-01 08:16] LABS: Magnesium 1.2 mg/dL (1.6-2.6)
[2020-03-01 08:19] LABS: Phosphorus 1.8 mg/dL (2.3-4.7)
[2020-03-01] MEDS ORDERED: FLU VACC QS2020-21(65YR UP)/PF 240 MCG/0.7 ML SYRINGE IM ONE (09:00)
[2020-03-01] MEDS ORDERED: K-Phos Neutral 250 MG TAB PO SCH (09:30)
[2020-03-01] MEDS ORDERED: Magnesium Sulfate 4 GM in Sodium Chloride 0.9% 250 ML 250 ML IVPB SCH (09:30)
[2020-03-01] MEDS: glipiZIDE 5 MG TAB PO SCH (09:40)
[2020-03-01] MEDS: Saccharomyces boulardii 250 MG CAP PO SCH (09:40)
[2020-03-01] MEDS: Atorvastatin Calcium 40 MG TAB PO SCH (09:40)
[2020-03-01] MEDS: Losartan 25 MG TAB PO SCH (09:40)
[2020-03-01] MEDS: Aspirin 325 MG TAB PO SCH (09:41)
[2020-03-01] MEDS: 1/2 NS w/KCL 20 mEq 1,000 ML IV SCH ×3 (09:41→23:22)
[2020-03-01] MEDS: Enoxaparin Sodium 40 MG/0.4 ML SYRINGE SC SCH (09:42)
[2020-03-01] MEDS: Mometasone 200 MCG/Formoterol 5 MCG 120 PUFF INHALER INH SCH ×2 (10:46→18:42)
[2020-03-01] MEDS: K-Phos Neutral 250 MG TAB PO SCH ×2 (12:36→17:11)
[2020-03-01 13:54] LABS: SARS-CoV-2 MS2 Positive; SARS-CoV-2 N Gene Negative; SARS-CoV-2 S Gene Negative; SARS-CoV-2 by NAA Not Detected (NotDetected); SARS-CoV-2 orf1ab Negative
--- NOTE | 2020-03-01 16:27 | CON ---
DATE OF CONSULTATION: 03/01/2020 REASON FOR CONSULTATION: Recurrent C diff colitis. HISTORY OF PRESENT ILLNESS: Mr. Camp is an 79-year-old gentleman. He was here in the hospital from 01/29 to 02/02 with C diff colitis. This had occurred after treatment for diverticulitis that had been diagnosed in [facility]. At that time, the patient went home on vancomycin 125 q.i.d. for 12 days and Florastor. The patient and the patient's daughter gave the history, notes that he had recurrent diarrhea starting this past Tuesday about 6 days ago now. When she came to pick him up to go to a Cardiology visit followup, he looked pale and dehydrated. She got out of him and he had been having severe diarrhea again and brought him to the emergency room. Here, pulse was 94 and blood pressure was 103/50. The recorded temperature there was 98.1. CAT scan was performed, which showed some thickening of the colon, which the radiologist presumed was maybe recurrent C diff. The patient also had a white count that was elevated at 22,000. BUN and creatinine were 19 and 0.85. Potassium was 3.1. Decision was made to readmit the patient. Today, the patient's magnesium and phosphorus are low, which have been replaced. In talking with the patient, they did see Dr. Saucedo a week or so ago and maybe he is going to have a screening colonoscopy in early March. The patient denies taking any other antecedent antibiotics since last discharge. He has not had C diff in the past. The patient's grandson has had it, but not recently in the past year and a half. Overall, he feels little better today and started a liquid diet. PAST MEDICAL HISTORY: Prostate cancer; COPD, on inhalers; diabetes, borderline, on medicine every other day; hyperlipidemia; CHF; prior coronary artery disease with previous cardiac stent; history of reflux. PAST SURGICAL HISTORY: Prostate surgery, cataract surgery, previous cardiac stent placement, previous right inguinal hernia repair. MEDICATIONS: At home, 1. Glipizide. 2. Tiotropium. 3. Zocor. 4. Saccharomyces boulardii. 5. Protonix. 6. Cozaar. 7. Furosemide. 8. Diltiazem. 9. Symbicort inhaler. 10. Atorvastatin. Medications here, 1. Vancomycin 500 p.o. q.6 hours. 2. Saccharomyces boulardii. 3. K-Phos. 4. Magnesium sulfate replacement. 5. Flagyl 500 IV q.8 hours. 6. Losartan. 7. Insulin. 8. Diltiazem. 9. Lovenox. PHYSICAL EXAMINATION: VITAL SIGNS: Temperature is 98.3, 99 max; pulse 103; blood pressure 130/70. GENERAL: He is sitting up. He has some oxygen on. He is a little bit dyspneic, but he can talk to me comfortably. He does not feel short winded. LUNGS: Clear. He has decreased breath sounds at the bases. HEART: Sinus tachycardia. ABDOMEN: Slightly protuberant. There is no rebound. There is no guarding. Bowel sounds are positive. EXTREMITIES: No clubbing, cyanosis, or edema. LABORATORY DATA: Sodium 142, potassium 3.2, BUN and creatinine 21 and 1.22. Bilirubin is 2. AST and ALT are 11 and 9. Albumin is 3.6. Magnesium was 1.2 on 03/01 and phosphorus was 1.8 on 03/01, both have been replaced. ASSESSMENT: First recurrence of diarrhea and pain consistent with recurrent Clostridium difficile infection. Stool ordered yesterday was not run. I reordered that test. I talked with the lab. They said that they will run it. We will need result to confirm the infection, which is going to commit him to a 6-week course of treatment. RECOMMENDATIONS: 1. For now, we would use the Flagyl 500 q.8 hours IV, vancomycin 500 mg p.o. q.i.d., and metronidazole. Replace electrolytes including magnesium and phosphorus daily. When he is ready for discharge, he should go home on 2 weeks of 250 mg of vancomycin q.i.d. and then taper to a week of t.i.d., then a week of b.i.d., a week of once a day, then 7 doses every other day and then 7 doses every third day, all remaining on a PPI. 2. His screening colonoscopy will be canceled as this is going to be in the middle of his taper and he can follow up with Dr. Saucedo at that time to reassess. Job ID: [id number]
--- NOTE | 2020-03-01 17:37 | PDOC.HOSPP ---
- Subjective Encounter Date: 03/01/20 Encounter Time: 09:45 Subjective: Patient seen and examined for recurrent C. difficile colitis. Abdominal discomfort mainly in the lower quadrants. Nausea with poor appetite. Denies any fever or chills. No chest pain, shortness of breath or palpitations. - Objective Vital Signs & Weight: Vital Signs (12 hours) Temp Pulse Resp BP Pulse Ox 03/01/20 16:14 98.4 F 79 20 127/75 92 L 03/01/20 14:30 97 20 91 L 03/01/20 12:38 98.3 F 103 H 20 138/70 93 L 03/01/20 10:46 82 20 95 03/01/20 10:44 110 H 20 95 03/01/20 08:00 95 03/01/20 07:13 98.2 F 109 H 20 138/78 97 Weight Admit Weight 189 lb 9.6 oz Weight 189 lb 9.561 oz I&O: 02/29/20 03/01/20 03/02/20 06:59 06:59 06:59 Intake Total 1100 Balance 1100 Result Diagrams: 03/01/20 04:59 03/01/20 04:59 Additional Labs: Accuchecks 03/01/20 03/01/20 02/29/20 16:16 04:59 20:36 POC Glucose 100 106 H 138 H Abnormal Lab Results - Last 48 hrs 02/29/20 17:44: Ur Specific [place] 1.046 H, Urine Protein 50 A 02/29/20 17:54: C-Reactive Protein 20.84 H 02/29/20 19:46: Potassium 3.1 L, Chloride 109 H, Carbon Dioxide 22 L 02/29/20 : Potassium 3.4 L, Carbon Dioxide 22 L, Total Bilirubin 2.0 H, Lipase Less than 4 L 02/29/20 : WBC 22.0 H, RBC 4.34 L, MCH 32.9 H, Band Neuts % (Manual) 13 H, Lymphocytes % (Manual) 18 L 02/29/20 : Lactic Acid 3.7 H 02/29/20 : Troponin I 0.041 H 03/01/20 04:59: Potassium 3.0 L, Chloride 109 H, Carbon Dioxide 22 L 03/01/20 04:59: WBC 13.9 H, RBC 3.93 L, Hgb 13.1 L, Hct 37.9 L, MCH 33.2 H, Band Neuts % (Manual) 46 H, Lymphocytes % (Manual) 2 L 03/01/20 04:59: Phosphorus 1.8 L, Magnesium 1.2 L Microbiology - Entire Visit 03/01/20 11:10 Stool C. difficile GDH Antigen & Toxins - Final 02/29/20 10:51 Venous blood - Right Arm Blood Culture - Preliminary Specimen has been received and culture in progress. No Growth to date. 02/29/20 10:48 Venous blood - Left Arm Blood Culture - Preliminary Specimen has been received and culture in progress. No Growth to date. 02/29/20 Unknown Stool - Pending Stool Culture - Preliminary 02/29/20 Unknown Stool - Pending Campylobacter Antigen Assay - Final 02/29/20 Unknown Stool - Pending Shiga Toxin Test - Final 02/29/20 Unknown Stool - Pending C. difficile GDH Antigen & Toxins - Final Radiology Reviewed by me: Yes (CT abdomencolitis) Hospitalist ROS - Review of Systems Respiratory: denies: cough, dry, shortness of breath, hemoptysis, SOB with excertion, pleuritic pain, sputum, wheezing, other Cardiovascular: denies: chest pain, palpitations, orthopnea, paroxysmal noc. dyspnea, edema, light headedness, other - Medication Medications: Active Medications Generic Name Dose Route Start Last Admin Trade Name Freq PRN Reason Stop Dose Admin Acetaminophen 650 mg 02/29/20 15:08 03/01/20 13:42 Acetaminophen 325 Mg Tab PO 650 mg Q6H PRN Administration Fever>101/(Mi/Mod/Sev) Pain Aspirin 325 mg 03/01/20 09:00 03/01/20 09:41 Aspirin 325 Mg Tab PO 325 mg DAILY BILL Administration Atorvastatin Calcium 40 mg 03/01/20 09:00 03/01/20 09:40 Atorvastatin Calcium 40 Mg Tab PO 40 mg DAILY BILL Administration Diltiazem HCl 360 mg 03/01/20 09:00 03/01/20 09:39 Diltiazem Hcl Cd 180 Mg Capsule PO 360 mg DAILY BILL Administration Enoxaparin Sodium 40 mg 03/01/20 09:00 03/01/20 09:42 Enoxaparin Sodium 40 Mg/0.4 Ml Syringe SC 40 mg 09 BILL Administration Glipizide 2.5 mg 03/01/20 09:00 03/01/20 09:40 Glipizide 5 Mg Tab PO 2.5 mg DAILY BILL Administration Metronidazole 500 mg/ Device 100 mls @ 100 mls/hr 02/29/20 20:00 03/01/20 12:36 IVPB 100 mls 0400,1200,2000 BILL Administration Potassium Chloride/Sodium Chloride 1,000 mls @ 125 mls/hr 03/01/20 07:45 03/01/20 17:12 1/2 Ns W/Kcl 20 Meq IV Not Given .Q8H BILL Ipratropium [place] 2.5 ml 02/29/20 19:00 03/01/20 14:30 Ipratropium [place] 2.5 Ml Neb NEB 2.5 ml [id number] BILL Administration Losartan Potassium 25 mg 03/01/20 09:00 03/01/20 09:40 Losartan 25 Mg Tab PO 25 mg DAILY BILL Administration Mometasone Furoate/Formoterol Fumar 2 puff 02/29/20 18:30 03/01/20 10:46 Mometasone 200 Mcg/Formoterol 5 Mcg 120 Puff Inhaler INH 2 puff BID-RT BILL Administration Montelukast Sodium 10 mg 02/29/20 21:00 02/29/20 20:38 Montelukast Sodium 10 Mg Tablet PO 10 mg HS BILL Administration Phosphorus 250 mg 03/01/20 12:00 03/01/20 17:11 K-Phos Neutral 250 Mg Tab PO 250 mg TID-WM BILL Administration Saccharomyces Boulardii 250 mg 03/01/20 09:00 03/01/20 09:40 Saccharomyces Boulardii 250 Mg Cap PO 250 mg DAILY BILL Administration Sodium Chloride 10 ml 03/01/20 09:00 03/01/20 09:42 Flush - Normal Saline 10 Ml Syringe IVF 10 ml Q12HR BILL Administration Vancomycin HCl 500 mg 02/29/20 18:00 03/01/20 17:12 Vancomycin Hcl 25 Mg/Ml Oral PO 500 mg Q6HR BILL Administration - Exam General Appearance: ill appearing Heart: RRR, no gallops, no rubs, normal peripheral pulses Respiratory: no wheezes, no rales, no ronchi, normal chest expansion Gastrointestinal: soft, no guarding, no rigidity, tender to palpation (And lower quadrant) Neurological: no new deficit Psychiatric: normal affect, A&O x 3 Hosp A/P - Plan DVT proph w/SCDs Severe sepsis due to recurrent C. difficile colitis Hypokalemia/hypomagnesium [place]/hypophosphatemia Lactic acidosis Recent hospitalization for C. difficile colitis/diverticulitis Diabetes mellitus type 2 Hyperlipidemia History of prostate cancer COPD Hypertension Glaucoma Plan: Replace potassium, magnesium and phosphorus. Start IV fluids. Continue oral vancomycin with Flagyl and. Await gastroenterology input. Continue glipizide with sliding scale for diabetes. Continue losartan. Recheck labs in a.m. Clear liquid diet. Ambulate. Continue other medications as above
[2020-03-01] MEDS ORDERED: traMADol HCl 50 MG TAB PO PRN (18:05)
[2020-03-01] MEDS: Dicyclomine 10 MG CAP PO PRN (18:52)
[2020-03-01] MEDS: Montelukast Sodium 10 mg Tablet PO SCH (21:08)
[2020-03-02] MEDS: Dicyclomine 10 MG CAP PO PRN ×2 (04:08→18:06)
[2020-03-02] MEDS: metroNIDAZOLE 500 MG in Premix Bag 1 BAG IVPB SCH ×3 (04:08→20:24)
[2020-03-02 05:31] LABS: ALT (SGPT) 8 U/L (8-55); AST (SGOT) 16 U/L (5-34); Albumin 2.6 g/dL (3.4-4.8); Alkaline Phosphatase 83 U/L (40-110); Anion Gap 14 mmol/L (10-20); BUN (Urea Nitrogen) 12 mg/dL (8.4-25.7); Bilirubin, Total 0.5 mg/dL (0.2-1.2); Calc. Creatinine Clearance 109 mL/min (70-130); Calcium 7.4 mg/dL (7.8-10.44); Carbon Dioxide 20 mmol/L (23-31); Chloride 107 mmol/L (98-107); Estimated GFR-MDRD Greater than 90; Globulin 2.6 g/dL (2.4-3.5); Glucose 78 mg/dL (83-110); Potassium 3.4 mmol/L (3.5-5.1); Protein, Total 5.2 g/dL (5.8-8.1); Sodium 138 mmol/L (136-145)
[2020-03-02 05:43] LABS: Band 32 % (5-11); Hemoglobin 12.4 g/dL (14.0-18.0); Lymphocytes 10 % (21-51); MDiff Complete? YES; Mean Corpuscular HGB CONC 32.9 g/dL (32.0-36.0); Mean Corpuscular Hemoglobin 32.5 pg (27.0-31.0); Mean Corpuscular Volume 98.9 fL (78.0-98.0); Mean Platelet Volume 7.9 fL (7.4-10.4); Monocytes 9 % (0-10); Neutrophil 49 % (42-75); Platelet Count 179 thou/uL (130-400); RBC Distribution Width 13.6 % (11.5-14.5); Red Blood Cell (RBC) Count 3.83 mill/uL (4.70-6.10); White Blood Cell (WBC) Count 15.4 thou/uL (4.8-10.8)
[2020-03-02] MEDS: Vancomycin HCl 25 MG/ML Oral PO SCH ×3 (05:55→17:54)
[2020-03-02] MEDS ORDERED: Potassium Phosphate 15 MMOL in Sodium Chloride 0.9% 250 ML 250 ML IVPB SCH (06:00)
[2020-03-02] MEDS: Ipratropium Bromide 2.5 ml Neb NEB SCH ×3 (06:42→19:06)
[2020-03-02] MEDS: Mometasone 200 MCG/Formoterol 5 MCG 120 PUFF INHALER INH SCH ×2 (06:45→19:06)
[2020-03-02] MEDS: Aspirin 325 MG TAB PO SCH (08:19)
[2020-03-02] MEDS: Enoxaparin Sodium 40 MG/0.4 ML SYRINGE SC SCH (08:19)
[2020-03-02] MEDS: glipiZIDE 5 MG TAB PO SCH (08:19)
[2020-03-02] MEDS: Atorvastatin Calcium 40 MG TAB PO SCH (08:20)
[2020-03-02] MEDS: Losartan 25 MG TAB PO SCH (08:20)
[2020-03-02] MEDS: K-Phos Neutral 250 MG TAB PO SCH ×3 (08:21→17:54)
[2020-03-02] MEDS: Saccharomyces boulardii 250 MG CAP PO SCH (08:21)
--- NOTE | 2020-03-02 10:32 | PRG ---
DATE OF SERVICE: 03/02/2020 SUBJECTIVE: Mr. Camp has noted to be bounced between midnight and 5 a.m., but still has episodes of tenesmus, urgency, and cramping. He has had some improvement in discomfort with some Bentyl. OBJECTIVE: VITAL SIGNS: Temperature max 97, temperature current 97.7, pulse 95 to 118, blood pressure 118/80. GENERAL: He has a little bit of cough. LUNGS: Decreased breath sounds at bases. HEART: Regular rate and rhythm. ABDOMEN: Soft and nontender. Positive bowel sounds. Slightly protuberant. LABORATORY DATA: White count 15.4, hemoglobin 12.4, platelet count 179, still 32% bands. Sodium 138, potassium 3.4, BUN and creatinine 12 and 0.6, phosphorus 2, magnesium 2, protein 5.2, albumin 2.6. Stool C diff positive. ASSESSMENT: 1. Recurrent Clostridium difficile. This is the first recurrence, second episode. Severe. 2. Dehydration, improved. 3. Hypomagnesemia and phosphatemia, improved with replacement. RECOMMENDATIONS: 1. Advance diet to low residue. 2. Decrease IV fluids to 75 mL an hour. 3. Continue IV Flagyl. 4. The patient will probably need to be in the hospital 2 to 3 more days. When he goes home, he will need a 6-week taper of vancomycin and 3 months of probiotics, and follow up with us in the office in a week or two. 5. Continue supportive care and electrolyte replacements, IV fluids at a lower regimen, and he is on a walking program. We will follow along with you. Job ID: [id number]
[2020-03-02] MEDS: 1/2 NS w/KCL 20 mEq 1,000 ML IV SCH ×2 (12:38→13:14)
--- NOTE | 2020-03-02 18:04 | PDOC.HOSPP ---
- Subjective Encounter Date: 03/02/20 Encounter Time: 10:45 Subjective: Patient seen and examined for sepsis due to C. difficile colitis. Diarrhea is slowing down. Abdominal cramping improving. Denies any fever or chills. - Objective Vital Signs & Weight: Vital Signs (12 hours) Temp Pulse Resp BP Pulse Ox 03/02/20 16:00 98.0 F 84 18 129/78 93 L 03/02/20 12:35 87 20 94 L 03/02/20 11:57 98.2 F 96 20 126/63 96 03/02/20 07:53 97.7 F 118 H 20 118/80 95 03/02/20 06:42 95 18 95 Weight Admit Weight 189 lb 9.6 oz Weight 189 lb 9.561 oz I&O: 03/01/20 03/02/20 03/03/20 06:59 06:59 06:59 Intake Total 1100 Balance 1100 Result Diagrams: 03/02/20 04:50 03/02/20 04:50 Additional Labs: Accuchecks 03/02/20 03/02/20 03/02/20 16:11 12:00 04:43 POC Glucose 62 L 72 75 03/01/20 19:48 POC Glucose 86 Abnormal Lab Results - Last 48 hrs 02/29/20 17:44: Ur Specific [place] 1.046 H, Urine Protein 50 A 02/29/20 17:54: C-Reactive Protein 20.84 H 02/29/20 19:46: Potassium 3.1 L, Chloride 109 H, Carbon Dioxide 22 L 03/01/20 04:59: Potassium 3.0 L, Chloride 109 H, Carbon Dioxide 22 L 03/01/20 04:59: WBC 13.9 H, RBC 3.93 L, Hgb 13.1 L, Hct 37.9 L, MCH 33.2 H, Band Neuts % (Manual) 46 H, Lymphocytes % (Manual) 2 L 03/01/20 04:59: Phosphorus 1.8 L, Magnesium 1.2 L 03/02/20 04:50: Potassium 3.4 L, Carbon Dioxide 20 L, Creatinine 0.66 L, Calcium 7.4 L, Phosphorus 2.0 L, Serum Total Protein 5.2 L, Albumin 2.6 L, Albumin/Globulin Ratio 1.0 L 03/02/20 04:50: WBC 15.4 H, RBC 3.83 L, Hgb 12.4 L, Hct 37.8 L, MCV 98.9 H, MCH 32.5 H, Band Neuts % (Manual) 32 H, Lymphocytes % (Manual) 10 L Microbiology - Entire Visit 02/29/20 10:51 Venous blood - Right Arm Blood Culture - Preliminary NO GROWTH AT 48 HOURS 02/29/20 10:48 Venous blood - Left Arm Blood Culture - Preliminary NO GROWTH AT 48 HOURS 02/29/20 Unknown Stool - Pending Stool Culture - Preliminary 03/01/20 11:10 Stool C. difficile GDH Antigen & Toxins - Final 02/29/20 Unknown Stool - Pending Campylobacter Antigen Assay - Final 02/29/20 Unknown Stool - Pending Shiga Toxin Test - Final 02/29/20 Unknown Stool - Pending C. difficile GDH Antigen & Toxins - Final Radiology Reviewed by me: Yes (Chest x-rayno infiltrate) Hospitalist ROS - Review of Systems Respiratory: denies: cough, dry, shortness of breath, hemoptysis, SOB with excertion, pleuritic pain, sputum, wheezing, other Cardiovascular: denies: chest pain, palpitations, orthopnea, paroxysmal noc. dyspnea, edema, light headedness, other - Medication Medications: Active Medications Generic Name Dose Route Start Last Admin Trade Name Freq PRN Reason Stop Dose Admin Acetaminophen 650 mg 02/29/20 15:08 03/01/20 13:42 Acetaminophen 325 Mg Tab PO 650 mg Q6H PRN Administration Fever>101/(Mi/Mod/Sev) Pain Aspirin 325 mg 03/01/20 09:00 03/02/20 08:19 Aspirin 325 Mg Tab PO 325 mg DAILY BILL Administration Atorvastatin Calcium 40 mg 03/01/20 09:00 03/02/20 08:20 Atorvastatin Calcium 40 Mg Tab PO 40 mg DAILY BILL Administration Dicyclomine HCl 10 mg 03/01/20 18:05 03/02/20 04:08 Dicyclomine 10 Mg Cap PO 10 mg QIDPRN PRN Administration GI spasm Diltiazem HCl 360 mg 03/01/20 09:00 03/02/20 08:21 Diltiazem Hcl Cd 180 Mg Capsule PO 360 mg DAILY BILL Administration Enoxaparin Sodium 40 mg 03/01/20 09:00 03/02/20 08:19 Enoxaparin Sodium 40 Mg/0.4 Ml Syringe SC 40 mg 0900 BILL Administration Glipizide 2.5 mg 03/01/20 09:00 03/02/20 08:19 Glipizide 5 Mg Tab PO 2.5 mg DAILY BILL Administration Metronidazole 500 mg/ Device 100 mls @ 100 mls/hr 02/29/20 20:00 03/02/20 12:36 IVPB 100 mls 0400,1200,2000 BILL Administration Potassium Chloride/Sodium Chloride 1,000 mls @ 75 mls/hr 03/02/20 10:07 03/02/20 12:38 1/2 Ns W/Kcl 20 Meq IV 1,000 mls .[id number] BILL Administration Ipratropium [place] 2.5 ml 02/29/20 19:00 03/02/20 12:35 Ipratropium [place] 2.5 Ml Neb NEB 2.5 ml [id number] BILL Administration Losartan Potassium 25 mg 03/01/20 09:00 03/02/20 08:20 Losartan 25 Mg Tab PO 25 mg DAILY BILL Administration Mometasone Furoate/Formoterol Fumar 2 puff 02/29/20 18:30 03/02/20 06:45 Mometasone 200 Mcg/Formoterol 5 Mcg 120 Puff Inhaler INH 2 puff BID-RT BILL Administration Montelukast Sodium 10 mg 02/29/20 21:00 03/01/20 21:08 Montelukast Sodium 10 Mg Tablet PO 10 mg HS BILL Administration Phosphorus 250 mg 03/01/20 12:00 03/02/20 17:54 K-Phos Neutral 250 Mg Tab PO 250 mg TID-WM BILL Administration Saccharomyces Boulardii 250 mg 03/01/20 09:00 03/02/20 08:21 Saccharomyces Boulardii 250 Mg Cap PO 250 mg DAILY BILL Administration Sodium Chloride 10 ml 03/01/20 09:00 03/02/20 08:21 Flush - Normal Saline 10 Ml Syringe IVF 10 ml Q12HR BILL Administration Vancomycin HCl 500 mg 02/29/20 18:00 03/02/20 17:54 Vancomycin Hcl 25 Mg/Ml Oral PO 500 mg Q6HR BILL Administration - Exam General Appearance: ill appearing Neck: supple, no JVD Heart: RRR, no gallops Respiratory: no wheezes, no ronchi Gastrointestinal: soft, normal bowel sounds, no guarding, no rigidity Gastrointestinal - other findings: Mild generalized tenderness Extremities: no cyanosis, no clubbing Neurological: no new deficit Hosp A/P - Plan DVT proph w/SCDs 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 difficile colitis/diverticulitis Diabetes mellitus type 2 Hyperlipidemia History of prostate cancer COPD Hypertension Glaucoma Plan: Reduce IV fluid to 75 mL per hour. Continue IV Flagyl with oral vancomycin. Replace electrolytes. Continue probiotic. Continue losartan, glipizide, aspirin, Lipitor and other medications as above. Recheck labs in a.m. Advance diet to fiber restricted
[2020-03-02] MEDS: Montelukast Sodium 10 mg Tablet PO SCH (20:23)
[2020-03-03] MEDS: Ipratropium Bromide 2.5 ml Neb NEB SCH ×4 (00:34→18:37)
[2020-03-03] MEDS: Vancomycin HCl 25 MG/ML Oral PO SCH ×4 (00:55→23:35)
[2020-03-03] MEDS: 1/2 NS w/KCL 20 mEq 1,000 ML IV SCH ×2 (01:04→17:55)
[2020-03-03] MEDS: metroNIDAZOLE 500 MG in Premix Bag 1 BAG IVPB SCH ×3 (04:03→20:59)
[2020-03-03 05:53] LABS: Lactic Acid 1.4 mmol/L (0.5-2.2)
[2020-03-03 05:56] LABS: ALT (SGPT) 9 U/L (8-55); AST (SGOT) 14 U/L (5-34); Albumin 2.7 g/dL (3.4-4.8); Alkaline Phosphatase 79 U/L (40-110); Anion Gap 12 mmol/L (10-20); BUN (Urea Nitrogen) 10 mg/dL (8.4-25.7); Bilirubin, Total 0.4 mg/dL (0.2-1.2); Calc. Creatinine Clearance 105 mL/min (70-130); Calcium 7.7 mg/dL (7.8-10.44); Carbon Dioxide 24 mmol/L (23-31); Chloride 107 mmol/L (98-107); Estimated GFR-MDRD Greater than 90; Globulin 2.4 g/dL (2.4-3.5); Glucose 81 mg/dL (83-110); Magnesium 2.1 mg/dL (1.6-2.6); Potassium 3.4 mmol/L (3.5-5.1); Protein, Total 5.1 g/dL (5.8-8.1); Sodium 140 mmol/L (136-145)
[2020-03-03 06:10] LABS: Phosphorus 2.5 mg/dL (2.3-4.7)
[2020-03-03 06:42] LABS: Hemoglobin 12.6 g/dL (14.0-18.0); Mean Corpuscular HGB CONC 33.7 g/dL (32.0-36.0); Mean Corpuscular Hemoglobin 32.8 pg (27.0-31.0); Mean Corpuscular Volume 97.5 fL (78.0-98.0); Mean Platelet Volume 7.8 fL (7.4-10.4); Platelet Count 191 thou/uL (130-400); RBC Distribution Width 13.3 % (11.5-14.5); Red Blood Cell (RBC) Count 3.83 mill/uL (4.70-6.10); White Blood Cell (WBC) Count 13.9 thou/uL (4.8-10.8)
[2020-03-03 06:49] LABS: Band 38 % (5-11); Eosinophils 1 % (0-10); Lymphocytes 8 % (21-51); MDiff Complete? YES; Monocytes 5 % (0-10); Neutrophil 48 % (42-75)
[2020-03-03] MEDS: Mometasone 200 MCG/Formoterol 5 MCG 120 PUFF INHALER INH SCH ×2 (07:40→18:37)
[2020-03-03] MEDS: Enoxaparin Sodium 40 MG/0.4 ML SYRINGE SC SCH (10:02)
[2020-03-03] MEDS: Saccharomyces boulardii 250 MG CAP PO SCH (10:03)
[2020-03-03] MEDS: Aspirin 325 MG TAB PO SCH (10:03)
[2020-03-03] MEDS: Dicyclomine 10 MG CAP PO PRN (10:03)
[2020-03-03] MEDS: K-Phos Neutral 250 MG TAB PO SCH ×3 (10:04→19:39)
[2020-03-03] MEDS: Atorvastatin Calcium 40 MG TAB PO SCH (10:04)
[2020-03-03] MEDS: Losartan 25 MG TAB PO SCH (10:04)
--- NOTE | 2020-03-03 11:25 | PRG ---
DATE OF SERVICE: 03/03/2020 SUBJECTIVE: Mr. Camp feels better, Bentyl helps his cramps. OBJECTIVE: VITAL SINGS: Temperature is 98.0, pulse rate 73, blood pressure 150/81. ABDOMEN: Protuberant, soft, and nontender now. Bowel sounds are positive. LABORATORY DATA: White count 13.9, hemoglobin 12.6, and platelet count 191, 38% bands persist. Sodium 140, potassium 3.4, BUN and creatinine 10 and 0.68. Liver function tests normal. Albumin 2.7. Protein 5.1. ASSESSMENT: Severe recurrent C diff, improving clinically. It remains of bandemia, but renal function stays good. His albumin is low, but is adequate. He does not need IV albumin at this time. RECOMMENDATIONS: 1. Continue low residue diet. Continue IV Flagyl and p.o. vanc. I would not discharge at this time. 2. When he does go home, which may be later this week, he will need to be on a vanc taper for 6 weeks. Job ID: [id number]
[2020-03-03] MEDS: Montelukast Sodium 10 mg Tablet PO SCH (20:59)
--- NOTE | 2020-03-03 21:25 | PDOC.HOSPP ---
- Subjective Encounter Date: 03/03/20 Encounter Time: 10:30 Subjective: Patient seen and examined for sepsis due to C. difficile colitis. Diarrhea improving. Intermittent abdominal cramping. No overnight events. - Objective Vital Signs & Weight: Vital Signs (12 hours) Temp Pulse Resp BP Pulse Ox 03/03/20 21:10 92 L 03/03/20 20:41 98.0 F 82 18 135/72 92 L 03/03/20 15:41 98.1 F 83 18 127/62 91 L 03/03/20 14:13 87 20 98 03/03/20 11:00 98.1 F 86 18 142/77 H 93 L Weight Admit Weight 189 lb 9.6 oz Weight 189 lb 9.561 oz I&O: 03/02/20 03/03/20 03/04/20 06:59 06:59 06:59 Intake Total 875 950 Balance 875 950 Result Diagrams: 03/03/20 05:21 03/03/20 05:21 Additional Labs: Accuchecks 03/03/20 03/03/20 03/03/20 20:48 15:48 11:03 POC Glucose 125 H 152 H 84 03/03/20 03/01/20 05:39 12:35 POC Glucose 73 92 Hospitalist ROS - Review of Systems Respiratory: denies: cough, dry, shortness of breath, hemoptysis, SOB with excertion, pleuritic pain, sputum, wheezing, other Cardiovascular: denies: chest pain, palpitations, orthopnea, paroxysmal noc. dyspnea, edema, light headedness, other - Medication Medications: Active Medications Generic Name Dose Route Start Last Admin Trade Name Freq PRN Reason Stop Dose Admin Acetaminophen 650 mg 02/29/20 15:08 03/01/20 13:42 Acetaminophen 325 Mg Tab PO 650 mg Q6H PRN Administration Fever>101/(Mi/Mod/Sev) Pain Aspirin 325 mg 03/01/20 09:00 03/03/20 10:03 Aspirin 325 Mg Tab PO 325 mg DAILY BILL Administration Atorvastatin Calcium 40 mg 03/01/20 09:00 03/03/20 10:04 Atorvastatin Calcium 40 Mg Tab PO 40 mg DAILY BILL Administration Dicyclomine HCl 10 mg 03/01/20 18:05 03/03/20 10:03 Dicyclomine 10 Mg Cap PO 10 mg QIDPRN PRN Administration GI spasm Diltiazem HCl 360 mg 03/01/20 09:00 03/03/20 10:03 Diltiazem Hcl Cd 180 Mg Capsule PO 360 mg DAILY BILL Administration Enoxaparin Sodium 40 mg 03/01/20 09:00 03/03/20 10:02 Enoxaparin Sodium 40 Mg/0.4 Ml Syringe SC 40 mg 0900 BILL Administration Glipizide 2.5 mg 03/01/20 09:00 03/02/20 08:19 Glipizide 5 Mg Tab PO 2.5 mg DAILY BILL Administration Metronidazole 500 mg/ Device 100 mls @ 100 mls/hr 02/29/20 20:00 03/03/20 20:59 IVPB 100 mls 0400,1200,2000 BILL Administration Potassium Chloride/Sodium Chloride 1,000 mls @ 50 mls/hr 03/03/20 12:10 03/03/20 17:55 1/2 Ns W/Kcl 20 Meq IV Not Given .Q20H BILL Ipratropium [place] 2.5 ml 02/29/20 19:00 03/03/20 18:37 Ipratropium [place] 2.5 Ml Neb NEB 2.5 ml [id number] BILL Administration Losartan Potassium 25 mg 03/01/20 09:00 03/03/20 10:04 Losartan 25 Mg Tab PO 25 mg DAILY BILL Administration Mometasone Furoate/Formoterol Fumar 2 puff 02/29/20 18:30 03/03/20 18:37 Mometasone 200 Mcg/Formoterol 5 Mcg 120 Puff Inhaler INH 2 puff BID-RT BILL Administration Montelukast Sodium 10 mg 02/29/20 21:00 03/03/20 20:59 Montelukast Sodium 10 Mg Tablet PO 10 mg HS BILL Administration Phosphorus 250 mg 03/01/20 12:00 03/03/20 19:39 K-Phos Neutral 250 Mg Tab PO 250 mg TID-WM BILL Administration Saccharomyces Boulardii 250 mg 03/01/20 09:00 03/03/20 10:03 Saccharomyces Boulardii 250 Mg Cap PO 250 mg DAILY BILL Administration Sodium Chloride 10 ml 03/01/20 09:00 03/03/20 21:00 Flush - Normal Saline 10 Ml Syringe IVF 10 ml Q12HR BILL Administration Vancomycin HCl 500 mg 02/29/20 18:00 03/03/20 12:53 Vancomycin Hcl 25 Mg/Ml Oral PO 500 mg Q6HR BILL Administration - Exam General Appearance: NAD Neck: supple, no JVD Heart: RRR, no gallops Respiratory: no wheezes, no rales Gastrointestinal: soft, non-distended, no guarding, no rigidity Gastrointestinal - other findings: Mild generalized tenderness Extremities: no cyanosis, no clubbing Neurological: no new deficit Psychiatric: normal affect, A&O x 3 Hosp A/P - Plan DVT proph w/lovenox 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 difficile colitis/diverticulitis Diabetes mellitus type 2 Hyperlipidemia History of prostate cancer COPD Hypertension Glaucoma Plan: Continue IV Flagyl with oral vancomycin. Reduce IV fluid to 50 mL/h. Continue sliding scale. Glipizide on hold. Continue probiotics. Patient will require 6 weeks vancomycin taper. Replace potassium. Ambulate. CBC in a.m.
[2020-03-04] MEDS: 1/2 NS w/KCL 20 mEq 1,000 ML IV SCH (00:12)
[2020-03-04] MEDS: Ipratropium Bromide 2.5 ml Neb NEB SCH ×4 (00:40→19:00)
[2020-03-04] MEDS: Vancomycin HCl 25 MG/ML Oral PO SCH ×4 (00:57→18:01)
[2020-03-04] MEDS: metroNIDAZOLE 500 MG in Premix Bag 1 BAG IVPB SCH ×2 (04:55→12:20)
[2020-03-04 05:55] LABS: Hemoglobin 13.1 g/dL (14.0-18.0); Mean Corpuscular HGB CONC 33.4 g/dL (32.0-36.0); Mean Corpuscular Volume 95.8 fL (78.0-98.0); Mean Platelet Volume 7.9 fL (7.4-10.4); Platelet Count 217 thou/uL (130-400); RBC Distribution Width 13.4 % (11.5-14.5); Red Blood Cell (RBC) Count 4.11 mill/uL (4.70-6.10); White Blood Cell (WBC) Count 10.4 thou/uL (4.8-10.8)
[2020-03-04 06:29] LABS: Band 21 % (5-11); Eosinophils 2 % (0-10); Lymphocytes 14 % (21-51); MDiff Complete? YES; Monocytes 7 % (0-10); Myelocyte 4 % (0-0); Neutrophil 51 % (42-75); Reactive Lymphocytes 1 % (0-10); Toxic Granulation SLIGHT
[2020-03-04] MEDS: Mometasone 200 MCG/Formoterol 5 MCG 120 PUFF INHALER INH SCH ×2 (08:14→19:01)
[2020-03-04] MEDS: K-Phos Neutral 250 MG TAB PO SCH ×3 (08:48→18:00)
[2020-03-04] MEDS: Enoxaparin Sodium 40 MG/0.4 ML SYRINGE SC SCH (08:49)
[2020-03-04] MEDS: Losartan 25 MG TAB PO SCH (08:49)
[2020-03-04] MEDS: Atorvastatin Calcium 40 MG TAB PO SCH (08:49)
[2020-03-04] MEDS: Aspirin 325 MG TAB PO SCH (08:49)
[2020-03-04] MEDS: Saccharomyces boulardii 250 MG CAP PO SCH (08:49)
--- NOTE | 2020-03-04 12:53 | PRG ---
DATE OF SERVICE: 03/04/2020 SUBJECTIVE: Mr. Camp says he is feeling well. There is no nausea or vomiting. He has tolerated a bit of breakfast this morning. He has had 2 bowel movements so far over the past 12 hours. These remain loose, but there is no blood. No abdominal pain. OBJECTIVE: VITAL SIGNS: Temperature 98.0, pulse 89, blood pressure 136/89, 94% oxygen saturation on room air. GENERAL: In no acute distress. HEART: Regular rate and rhythm. LUNGS: Clear to auscultation bilaterally. ABDOMEN: Obese. Bowel sounds are present. Soft, nontender to palpation. EXTREMITIES: No peripheral edema. LABORATORY STUDIES: WBC is down to 10.4, hemoglobin 13.1, platelets 217. Glucose 126. ASSESSMENT AND PLAN: 1. Severe Clostridium difficile colitis, recurrent, much improved today. 2. Abdominal pain, improved. 3. Leukocytosis, resolved. The patient appears to be doing very well. Continuing IV Flagyl and p.o. vancomycin for now. I think if he does well the rest of the day and has a good night tonight, he could potentially be discharged from the hospital tomorrow from a GI perspective. Upon discharge, he needs to continue a 6-week oral vancomycin taper as outlined by Dr. Aragon. Follow up in the GI Clinic with Dr. Saucedo. Job ID: [id number]
[2020-03-04] MEDS: metroNIDAZOLE 500 MG TAB PO SCH ×2 (15:50→22:07)
--- NOTE | 2020-03-04 16:39 | PDOC.HOSPP ---
- Subjective Encounter Date: 03/04/20 Encounter Time: 11:30 Subjective: Patient seen and examined for sepsis due to C. difficile colitis. Had semisoft bowel movement earlier. Abdominal cramping improving. No significant nausea. Denies any fever or chills. - Objective Vital Signs & Weight: Vital Signs (12 hours) Temp Pulse Resp BP Pulse Ox 03/04/20 15:44 98.0 F 91 18 133/69 92 L 03/04/20 10:46 98.0 F 89 16 136/89 94 L 03/04/20 08:48 93 L 03/04/20 07:14 97.4 F L 83 16 141/83 H 93 L Weight Admit Weight 189 lb 9.6 oz Weight 189 lb 9.561 oz I&O: 03/03/20 03/04/20 03/05/20 06:59 06:59 06:59 Intake Total 875 2170 Balance 875 2170 Result Diagrams: 03/04/20 05:22 03/03/20 05:21 Additional Labs: Accuchecks 03/04/20 03/04/20 03/03/20 11:02 05:26 20:48 POC Glucose 126 H 87 125 H Abnormal Lab Results - Last 48 hrs 03/03/20 05:21: Potassium 3.4 L, Creatinine 0.68 L, Calcium 7.7 L, Serum Total Protein 5.1 L, Albumin 2.7 L, Albumin/Globulin Ratio 1.1 L 03/03/20 05:21: WBC 13.9 H, RBC 3.83 L, Hgb 12.6 L, Hct 37.3 L, MCH 32.8 H, Band Neuts % (Manual) 38 H, Lymphocytes % (Manual) 8 L 03/04/20 05:22: RBC 4.11 L, Hgb 13.1 L, Hct 39.4 L, MCH 32.0 H, Band Neuts % (Manual) 21 H, Lymphocytes % (Manual) 14 L, Myelocytes % 4 H Microbiology - Entire Visit 02/29/20 Unknown Stool - Pending Stool Culture - Final 02/29/20 10:51 Venous blood - Right Arm Blood Culture - Preliminary NO GROWTH AT 48 HOURS 02/29/20 10:48 Venous blood - Left Arm Blood Culture - Preliminary NO GROWTH AT 48 HOURS 03/01/20 11:10 Stool C. difficile GDH Antigen & Toxins - Final 02/29/20 Unknown Stool - Pending Campylobacter Antigen Assay - Final 02/29/20 Unknown Stool - Pending Shiga Toxin Test - Final 02/29/20 Unknown Stool - Pending C. difficile GDH Antigen & Toxins - Final Hospitalist ROS - Review of Systems Respiratory: denies: cough, dry, shortness of breath, hemoptysis, SOB with excertion, pleuritic pain, sputum, wheezing, other Cardiovascular: denies: chest pain, palpitations, orthopnea, paroxysmal noc. dyspnea, edema, light headedness, other - Medication Medications: Active Medications Generic Name Dose Route Start Last Admin Trade Name Freq PRN Reason Stop Dose Admin Acetaminophen 650 mg 02/29/20 15:08 03/01/20 13:42 Acetaminophen 325 Mg Tab PO 650 mg Q6H PRN Administration Fever>101/(Mi/Mod/Sev) Pain Aspirin 325 mg 03/01/20 09:00 03/04/20 08:49 Aspirin 325 Mg Tab PO 325 mg DAILY BILL Administration Atorvastatin Calcium 40 mg 03/01/20 09:00 03/04/20 08:49 Atorvastatin Calcium 40 Mg Tab PO 40 mg DAILY BILL Administration Dicyclomine HCl 10 mg 03/01/20 18:05 03/03/20 10:03 Dicyclomine 10 Mg Cap PO 10 mg QIDPRN PRN Administration GI spasm Diltiazem HCl 360 mg 03/01/20 09:00 03/04/20 08:49 Diltiazem Hcl Cd 180 Mg Capsule PO 360 mg DAILY BILL Administration Enoxaparin Sodium 40 mg 03/01/20 09:00 03/04/20 08:49 Enoxaparin Sodium 40 Mg/0.4 Ml Syringe SC 40 mg 0900 BILL Administration Glipizide 2.5 mg 03/01/20 09:00 03/02/20 08:19 Glipizide 5 Mg Tab PO 2.5 mg DAILY BILL Administration Ipratropium [place] 2.5 ml 02/29/20 19:00 03/04/20 14:15 Ipratropium [place] 2.5 Ml Neb NEB 2.5 ml [id number] BILL Administration Losartan Potassium 25 mg 03/01/20 09:00 03/04/20 08:49 Losartan 25 Mg Tab PO 25 mg DAILY BILL Administration Metronidazole 500 mg 03/04/20 15:00 03/04/20 15:50 Metronidazole 500 Mg Tab PO 500 mg TID BILL Administration Mometasone Furoate/Formoterol Fumar 2 puff 02/29/20 18:30 03/04/20 08:14 Mometasone 200 Mcg/Formoterol 5 Mcg 120 Puff Inhaler INH Not Given BID-RT BILL Montelukast Sodium 10 mg 02/29/20 21:00 03/03/20 20:59 Montelukast Sodium 10 Mg Tablet PO 10 mg HS BILL Administration Phosphorus 250 mg 03/01/20 12:00 03/04/20 12:20 K-Phos Neutral 250 Mg Tab PO 250 mg TID-WM BILL Administration Saccharomyces Boulardii 250 mg 03/01/20 09:00 03/04/20 08:49 Saccharomyces Boulardii 250 Mg Cap PO 250 mg DAILY BILL Administration Sodium Chloride 10 ml 03/01/20 09:00 03/04/20 08:48 Flush - Normal Saline 10 Ml Syringe IVF 10 ml Q12HR BILL Administration Vancomycin HCl 500 mg 02/29/20 18:00 03/04/20 12:20 Vancomycin Hcl 25 Mg/Ml Oral PO 500 mg Q6HR BILL Administration - Exam General Appearance: NAD Heart: RRR, no gallops, no rubs, normal peripheral pulses Respiratory: no wheezes, no ronchi Gastrointestinal: soft, non-tender, normal bowel sounds, no guarding, no rigid ity Extremities: no cyanosis, no clubbing, no edema Neurological: no new deficit Hosp A/P - Plan DVT proph w/SCDs 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 difficile colitis/diverticulitis Diabetes mellitus type 2 Hyperlipidemia History of prostate cancer COPD Hypertension Glaucoma Plan: Continue oral vancomycin. Continue IV Flagyl. Check CBC and CMP in a.m. Discontinue IV fluids. Continue losartan, Lipitor, Cardizem and other medications as above. Continue probiotics.. Continue potassium supplementation Radiological investigation: Chest x-ray11/6no infiltrate CT abdomen/[id number]/6colonic wall thickening extending from the cecum to the mid descending colon with pericolonic inflammatory stranding consistent with pseudomembranous colitis with mild splenomegaly. Also pulmonary nodule at the right lung base.
[2020-03-04] MEDS: Montelukast Sodium 10 mg Tablet PO SCH (22:07)
[2020-03-05] MEDS: Ipratropium Bromide 2.5 ml Neb NEB SCH ×3 (00:38→13:18)
[2020-03-05] MEDS: Vancomycin HCl 25 MG/ML Oral PO SCH ×4 (01:17→17:39)
[2020-03-05 07:10] LABS: Hemoglobin 12.8 g/dL (14.0-18.0); Mean Corpuscular HGB CONC 32.3 g/dL (32.0-36.0); Mean Corpuscular Hemoglobin 31.5 pg (27.0-31.0); Mean Corpuscular Volume 97.7 fL (78.0-98.0); Platelet Count 251 thou/uL (130-400); RBC Distribution Width 13.6 % (11.5-14.5); Red Blood Cell (RBC) Count 4.06 mill/uL (4.70-6.10); White Blood Cell (WBC) Count 13.2 thou/uL (4.8-10.8)
[2020-03-05 07:21] LABS: Anion Gap 14 mmol/L (10-20); BUN (Urea Nitrogen) 8 mg/dL (8.4-25.7); Calc. Creatinine Clearance 104 mL/min (70-130); Calcium 7.9 mg/dL (7.8-10.44); Carbon Dioxide 26 mmol/L (23-31); Chloride 106 mmol/L (98-107); Estimated GFR-MDRD Greater than 90; Glucose 96 mg/dL (83-110); Sodium 143 mmol/L (136-145)
[2020-03-05 07:45] LABS: Band 11 % (5-11); Eosinophils 2 % (0-10); Lymphocytes 17 % (21-51); MDiff Complete? YES; Metamyelocyte 3 % (0-0); Monocytes 6 % (0-10); Myelocyte 5 % (0-0); Neutrophil 53 % (42-75); Platelet Morphology Comment Appears Adequate; Polychromasia SLIGHT = 2-3 cells (100X) (0-2/hpf); Reactive Lymphocytes 3 % (0-10); Toxic Granulation SLIGHT
[2020-03-05] MEDS: Mometasone 200 MCG/Formoterol 5 MCG 120 PUFF INHALER INH SCH (07:46)
[2020-03-05] MEDS: Potassium Chloride 20 MEQ TAB PO SCH ×2 (08:17→12:46)
[2020-03-05] MEDS: K-Phos Neutral 250 MG TAB PO SCH ×2 (08:17→12:46)
[2020-03-05] MEDS: metroNIDAZOLE 500 MG TAB PO SCH ×2 (08:17→14:48)
[2020-03-05] MEDS: Losartan 25 MG TAB PO SCH (08:17)
[2020-03-05] MEDS: Atorvastatin Calcium 40 MG TAB PO SCH (08:18)
[2020-03-05] MEDS: Saccharomyces boulardii 250 MG CAP PO SCH (08:18)
[2020-03-05] MEDS: Enoxaparin Sodium 40 MG/0.4 ML SYRINGE SC SCH (08:18)
[2020-03-05] MEDS: Aspirin 325 MG TAB PO SCH (08:18)
[2020-03-05 11:04] VITALS: TEMP 98.1
--- NOTE | 2020-03-05 14:56 | PDOC.HOSPP ---
- Subjective Encounter Date: 03/05/20 Encounter Time: 10:30 Subjective: Patient seen and examined for C. difficile colitis. Had 4-5 episodes of semiformed bowel movement. Denies any abdominal pain. No fever, nausea or vomiting reported. - Objective Vital Signs & Weight: Vital Signs (12 hours) Temp Pulse Resp BP Pulse Ox 03/05/20 13:18 85 16 96 03/05/20 10:57 98.1 F 92 18 162/74 H 93 L 03/05/20 08:16 97.8 F 85 18 164/80 H 93 L 03/05/20 04:44 98.0 F 80 20 143/76 H 92 L Weight Admit Weight 189 lb 9.6 oz Weight 189 lb 9.561 oz I&O: 03/04/20 03/05/20 03/06/20 06:59 06:59 06:59 Intake Total 2170 948 500 Balance 2170 948 500 Result Diagrams: 03/05/20 05:45 03/05/20 05:45 Additional Labs: Accuchecks 03/05/20 03/05/20 03/04/20 11:00 05:44 22:57 POC Glucose 134 H 96 124 H 03/04/20 15:48 POC Glucose 119 H Hospitalist ROS - Review of Systems Respiratory: denies: cough, dry, shortness of breath, hemoptysis, SOB with excertion, pleuritic pain, sputum, wheezing, other Cardiovascular: denies: chest pain, palpitations, orthopnea, paroxysmal noc. dyspnea, edema, light headedness, other - Medication Medications: Active Medications Generic Name Dose Route Start Last Admin Trade Name Freq PRN Reason Stop Dose Admin Acetaminophen 650 mg 02/29/20 15:08 03/01/20 13:42 Acetaminophen 325 Mg Tab PO 650 mg Q6H PRN Administration Fever>101/(Mi/Mod/Sev) Pain Aspirin 325 mg 03/01/20 09:00 03/05/20 08:18 Aspirin 325 Mg Tab PO 325 mg DAILY BILL Administration Atorvastatin Calcium 40 mg 03/01/20 09:00 03/05/20 08:18 Atorvastatin Calcium 40 Mg Tab PO 40 mg DAILY BILL Administration Diltiazem HCl 360 mg 03/01/20 09:00 03/05/20 08:18 Diltiazem Hcl Cd 180 Mg Capsule PO 360 mg DAILY BILL Administration Enoxaparin Sodium 40 mg 03/01/20 09:00 03/05/20 08:18 Enoxaparin Sodium 40 Mg/0.4 Ml Syringe SC 40 mg 09 BILL Administration Glipizide 2.5 mg 03/01/20 09:00 03/02/20 08:19 Glipizide 5 Mg Tab PO 2.5 mg DAILY BILL Administration Ipratropium [place] 2.5 ml 02/29/20 19:00 03/05/20 13:18 Ipratropium [place] 2.5 Ml Neb NEB 2.5 ml [id number] BILL Administration Losartan Potassium 25 mg 03/01/20 09:00 03/05/20 08:17 Losartan 25 Mg Tab PO 25 mg DAILY BILL Administration Metronidazole 500 mg 03/04/20 15:00 03/05/20 14:48 Metronidazole 500 Mg Tab PO 500 mg TID BILL Administration Mometasone Furoate/Formoterol Fumar 2 puff 02/29/20 18:30 03/05/20 07:46 Mometasone 200 Mcg/Formoterol 5 Mcg 120 Puff Inhaler INH 2 puff BID-RT BILL Administration Montelukast Sodium 10 mg 02/29/20 21:00 03/04/20 22:07 Montelukast Sodium 10 Mg Tablet PO 10 mg HS BILL Administration Phosphorus 250 mg 03/01/20 12:00 03/05/20 12:46 K-Phos Neutral 250 Mg Tab PO 250 mg TID-WM BILL Administration Potassium Chloride 20 meq 03/05/20 08:00 03/05/20 12:46 Potassium Chloride 20 Meq Tab PO 20 meq TID-WM BILL Administration Saccharomyces Boulardii 250 mg 03/01/20 09:00 03/05/20 08:18 Saccharomyces Boulardii 250 Mg Cap PO 250 mg DAILY BILL Administration Sodium Chloride 10 ml 03/01/20 09:00 03/05/20 08:18 Flush - Normal Saline 10 Ml Syringe IVF Not Given Q12HR BILL Vancomycin HCl 500 mg 02/29/20 18:00 03/05/20 12:46 Vancomycin Hcl 25 Mg/Ml Oral PO 500 mg Q6HR BILL Administration - Exam General Appearance: NAD Neck: supple, no JVD Heart: RRR, no gallops Respiratory: no wheezes, no ronchi Gastrointestinal: soft, non-tender, normal bowel sounds Extremities: no cyanosis Hosp A/P - Plan DVT proph w/lovenox, DVT proph w/SCDs 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 difficile colitis/diverticulitis Diabetes mellitus type 2 Hyperlipidemia History of prostate cancer COPD Hypertension Glaucoma Plan: Continue oral vancomycin 500 mg 4 times a day. Flagyl changed to oral due to lack of IV access. Continue probiotics. Continue PPIs. Continue Lipitor, Cardizem, losartan and other medications as above. Replace potassium. A.m. labs. DC home once cleared by gastroenterology. Radiological investigation: Chest x-ray11/6no infiltrate CT abdomen/[id number]/6colonic wall thickening extending from the cecum to the mid descending colon with pericolonic inflammatory stranding consistent with pse udomembranous colitis with mild splenomegaly. Also pulmonary nodule at the right lung base.
[2020-03-05 15:38] VITALS: BP 124/74
--- NOTE | 2020-03-05 16:43 | PDOC.DS.DS ---
Provider - Provider Date of Admission: 02/29/20 13:35 Date of Discharge: 03/05/20 Admitting Provider: Tonya Kebede MD Consultations: Gastroentrology Primary Care Physician: Rust Course - Hospital Course Hospital Course: Patient is a 79-year-old male with recent C. difficile colitis and diverticulitis who completed 12-day course of vancomycin presented to the emergency room on 02/28 with abdominal pain along with diarrhea. His work-up was consistent with recurrent C. difficile colitis. He was started on vancomycin 500 mg every 6 hourly along with IV Flagyl. Patient was also evaluated by gastroenterology. He had some electrolyte imbalances which were replaced. He has been cleared by gastroenterology for discharge. Diarrhea has significantly improved. He will complete 6-week course of tapering vancomycin which has been called in to his pharmacy. 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 difficile colitis/diverticulitis Diabetes mellitus type 2 Hyperlipidemia History of prostate cancer COPD Hypertension Glaucoma Resuscitation Status: 02/29/20 15:08 Resuscitation Status Routine Resuscitation Status: FULL: Full Resuscitation - Labs Lab Results: 03/05/20 05:45 03/05/20 05:45 Abnormal Lab Results - Last 48 hrs 03/04/20 05:22: RBC 4.11 L, Hgb 13.1 L, Hct 39.4 L, MCH 32.0 H, Band Neuts % (Manual) 21 H, Lymphocytes % (Manual) 14 L, Myelocytes % 4 H 03/05/20 05:45: WBC 13.2 H, RBC 4.06 L, Hgb 12.8 L, Hct 39.6 L, MCH 31.5 H, Lymphocytes % (Manual) 17 L, Metamyelocytes % (Man) 3 H, Myelocytes % 5 H 03/05/20 05:45: Potassium 3.0 L, BUN 8 L, Creatinine 0.69 L Microbiology - Entire Visit 02/29/20 10:51 Venous blood - Right Arm Blood Culture - Final NO GROWTH IN 5 DAYS 02/29/20 10:48 Venous blood - Left Arm Blood Culture - Final NO GROWTH IN 5 DAYS 02/29/20 Unknown Stool - Pending Stool Culture - Final 03/01/20 11:10 Stool C. difficile GDH Antigen & Toxins - Final 02/29/20 Unknown Stool - Pending Campylobacter Antigen Assay - Final 02/29/20 Unknown Stool - Pending Shiga Toxin Test - Final 02/29/20 Unknown Stool - Pending C. difficile GDH Antigen & Toxins - Final - Diagnostic Interpretation Other Additional comments: Chest x-ray11/6no infiltrate CT abdomen//6colonic wall thickening extending from the cecum to the mid descending colon with pericolonic inflammatory stranding consistent with pseudomembranous colitis with mild splenomegaly. Also pulmonary nodule at the right lung base. - Physical Exam Vitals: Vital Signs (12 hours) Temp Pulse Resp BP Pulse Ox 03/05/20 15:31 98.1 F 80 16 124/74 94 L 03/05/20 13:18 85 16 96 03/05/20 10:57 98.1 F 92 18 162/74 H 93 L 03/05/20 08:16 97.8 F 85 18 164/80 H 93 L 03/05/20 04:44 98.0 F 80 20 143/76 H 92 L Weight Admit Weight 189 lb 9.6 oz Weight 189 lb 9.561 oz Physical Exam: The patient was seen and examined on the day of discharge. Plan - Discharge Medications Prescriptions: Vancomycin HCl [Vancocin HCl] 250 mg PO QID #100 capsule Home Medications: Medication Instructions Recorded Confirmed Type Budesonide-Formoterol [Symbicort 2 puff INH BID 05/12/15 02/29/20 History 160-4.5] Pantoprazole [Protonix] 40 mg PO DAILY #0 tab 05/13/15 02/29/20 Rx Brimonidine Tartrate [Brimonidine 1 drop EA EYE BID 05/27/17 02/29/20 History Tartrate 0.15% Ophth Soln] Simvastatin [Zocor] 40 mg PO HS #30 tab 05/31/17 02/29/20 Rx Aspirin 1 tab PO DAILY 12/14/18 02/29/20 History Cetirizine HCl 10 mg PO DAILY 12/14/18 02/29/20 History Diltiazem HCl [Diltiazem ER 24 Hr] 360 mg PO DAILY 12/14/18 02/29/20 History Losartan [Cozaar] 25 mg PO DAILY 12/14/18 02/29/20 History Montelukast Sodium 10 mg PO DAILY 12/14/18 02/29/20 History Tiotropium [Spiriva Handihaler] 18 mcg INH DAILY 12/14/18 02/29/20 History glipiZIDE [Glipizide] 0.5 tab PO DAILY 12/14/18 02/29/20 History Atorvastatin Calcium 40 mg PO DAILY 01/30/20 02/29/20 History Furosemide 40 mg PO DAILY 01/30/20 02/29/20 History Saccharomyces boulardii [Florastor] 250 mg PO DAILY #30 cap 02/03/20 02/29/20 Rx Vancomycin HCl [Vancocin HCl] 250 mg PO QID #100 capsule 03/05/20 Rx Allergies: Penicillins Allergy (Verified 01/30/20 23:30) - Discharge Instructions Discharge Instructions:: Basic metabolic profile after 1 weekPCP to arrange and follow Please follow-up on pulmonary nodules - Follow up Plan Referrals: [facility] [Primary Care Provider] - 7 Days Luis Saucedo MD [Active] - 2-3 Weeks Disposition: HOME Quality - Care Measures CORE MEASURES:: N/A
--- NOTE | 2020-03-05 19:30 | PRG ---
DATE OF SERVICE: 03/05/2020 SUBJECTIVE: He continues to have small volume mushy stools 4 to 5 times per day. He has no abdominal pain. No blood in the stool. OBJECTIVE: VITAL SIGNS: Temperature 98.1, pulse 80, blood pressure 124/74. GENERAL: He is in no acute distress. Alert and oriented x3. LUNGS: Clear to auscultation bilaterally. HEART: Regular rate and rhythm without murmur. ABDOMEN: Soft, nontender, and nondistended. Bowel sounds are present. EXTREMITIES: No lower extremity edema. LABORATORY DATA: White blood cell count 13.2, hemoglobin 12.8, platelets 251. Creatinine 0.69. IMPRESSION: Sepsis secondary to severe Clostridium difficile colitis, now clinically improved. RECOMMENDATIONS: 1. Complete a 6-week vancomycin taper. This has been called to his Pharmacy by the Hospital Service. 2. He is discharging to home today. 3. He will follow up in GI clinic. Job ID: [id number]
[2020-03-06] MEDS ORDERED: Furosemide 40 MG TAB PO SCH (09:00)
== END 2020-03-05 17:40 | disposition home or self-care (01) | DRG 872 ==
LOC: ERS 10:22 → SJJU 13:35
PROVIDERS: ADMIT Internal Medicine; ATTEND Internal Medicine
DX: A41.4 Sepsis due to anaerobes (principal); A04.71 Enterocolitis due to Clostridium difficile, recurrent; E87.2 Acidosis; Z20.828 Contact with and (suspected) exposure to other viral communicable diseases; E87.6 Hypokalemia; E83.42 Hypomagnesemia; E83.39 Other disorders of phosphorus metabolism; E11.9 Type 2 diabetes mellitus without complications; E78.5 Hyperlipidemia, unspecified; J44.9 Chronic obstructive pulmonary disease, unspecified; H40.9 Unspecified glaucoma; K21.9 Gastro-esophageal reflux disease without esophagitis; I50.9 Heart failure, unspecified; I25.10 Atherosclerotic heart disease of native coronary artery without angina pectoris; R65.20 Severe sepsis without septic shock; E86.0 Dehydration; I11.0 Hypertensive heart disease with heart failure; Z28.21 Immunization not carried out because of patient refusal; Z85.46 Personal history of malignant neoplasm of prostate; Z88.0 Allergy status to penicillin; Z98.49 Cataract extraction status, unspecified eye; Z87.891 Personal history of nicotine dependence; Z79.899 Other long term (current) drug therapy; Z79.51 Long term (current) use of inhaled steroids; Z79.84 Long term (current) use of oral hypoglycemic drugs; Z95.5 Presence of coronary angioplasty implant and graft
CPT/HCPCS: 36415; 36416; 71045; 74177; 80048; 80053; 81001; 82553; 83605; 83690; 83735; 84100; 84484; 85025; 86140; 87040; 87045; 87046; 87324; 87427; 87449; 87635; 93005; 94640; 96365; 96366; 96368; J0692; J1650; J3370; J3475; J3480; J7050; Q9967; U0003

== ENCOUNTER 2024-06-18 13:02 | Outpatient (CLI) | payer MEDICARE, OTHER, BC | END 2024-06-18 13:03 | disposition home or self-care (01) | LOC: RAD 13:02 | PROVIDERS: ATTEND Internal Medicine | DX: R06.00 Dyspnea, unspecified (principal); I51.7 Cardiomegaly; J98.6 Disorders of diaphragm; R09.89 Other specified symptoms and signs involving the circulatory and respiratory systems | CPT/HCPCS: 71046 ==